=== PATIENT | male | born 1955 | race Caucasian/White ===

== ENCOUNTER 2022-02-12 06:24 | Inpatient (IN) | payer BC, OTHER ==
--- NOTE | 2022-02-12 06:51 | ED ---
Neuro HPI <Ronal Combs - Last Filed: 02/12/22 08:00> - General Source: EMS Mode of arrival: EMS Limitations: no limitations - History of Present Illness Is the patient presenting with stroke symptoms?: Yes Last Known Well Date: 02/11/22 Last Known Well Time: 20:00 -: hour(s) Location: right arm, right leg History of same: No Place: home Severity: moderate Quality: weak Improves With: none Worsens With: none On Anticoagulants: No Context: sudden onset Associated Symptoms: denies other symptoms Treatments Prior to Arrival: none <Shivam Pinon - Last Filed: 02/16/22 23:30> - General Stated Complaint: Rt Sided Weakness - History of Present Illness Initial Comments: This patient is 66-year-old man who presents to have evaluation for right-sided weakness. Patient had gone to bed around 830 PM last night. When he woke this morning around 3 AM he tried to get up to use the bathroom but was not able to stand due to weakness on his right side. He is not able get out of bed EMS called and transported patient for evaluation. Patient denies any headache. No injury or fall. Denies other complaints. (Shivam Pinon) - Related Data Home Medications: Home Medications Medication Instructions Recorded Confirmed Omeprazole Magnesium [PriLOSEC OTC] 20 mg PO DAILY PRN 02/12/22 02/12/22 Allergies/Adverse Reactions: Allergies Allergy/AdvReac Type Severity Reaction Status Date / Time No Known Drug Allergies Allergy Unknown Verified 02/12/22 08:31 Review of Systems ROS Other: All systems not noted in ROS Statement are negative. <Ronal Combs - Last Filed: 02/12/22 08:00> ROS Other: All systems not noted in ROS Statement are negative. Constitutional: Denies: fever, chills Eyes: Denies: eye pain, vision change Respiratory: Denies: cough, dyspnea Cardiovascular: Denies: chest pain, palpitations, edema Gastrointestinal: Denies: abdominal pain, nausea, vomiting Genitourinary: Denies: dysuria, hematuria Musculoskeletal: Denies: back pain Skin: Denies: rash Neurological: Reports: weakness. Denies: headache, numbness, paresthesias <Shivam Pinon - Last Filed: 02/16/22 23:30> ROS Statement: Those systems with pertinent positive or pertinent negative responses have been documented in the HPI. General Exam Limitations: no limitations General appearance: alert, in no apparent distress Head exam: Present: atraumatic, normocephalic Eye exam: Present: normal appearance, PERRL, EOMI. Absent: scleral icterus, conjunctival injection ENT exam: Present: normal oropharynx Neck exam: Present: normal inspection, full ROM Respiratory exam: Present: normal lung sounds bilaterally. Absent: respiratory distress, wheezes, rales, rhonchi, stridor Cardiovascular Exam: Present: regular rate, normal rhythm, normal heart sounds. Absent: systolic murmur, diastolic murmur, rubs, gallop GI/Abdominal exam: Present: soft. Absent: distended, tenderness, guarding, rebound, rigid, mass Extremities exam: Present: normal inspection, normal capillary refill. Absent: pedal edema, calf tenderness Back exam: Present: normal inspection. Absent: CVA tenderness (R), CVA tenderness (L) Neurological exam: Present: alert, oriented X3, CN II-XII intact, motor sensory deficit Skin exam: Present: warm, dry, intact, normal color. Absent: rash <Shivam Pinon - Last Filed: 02/16/22 23:30> Stroke MDM - Lab Data Result diagrams: 02/12/22 06:45 02/12/22 06:45 <Ronal Combs - Last Filed: 02/12/22 08:00> - Lab Data Result diagrams: 02/16/22 08:25 02/16/22 08:25 - NIH Stroke Scale 1a. Level of Consciousness: (0) alert 1b. LOC Questions: (0) answers correctly 1c. LOC Commands: (0) performs tasks correctly 2. Best Gaze: (0) normal 3. Visual: (0) no visual loss 4. Facial Palsy: (0) normal symmetrical movement 5a. Motor Arm Left: (0) no drift 5b. Motor Arm Right: (0) no drift 6a. Motor Leg Left: (0) no drift 6b. Motor Leg Right: (1) drift 7. Limb Ataxia: (1) present 1 limb 8. Sensory: (1) mild/moderate sensory loss 9. Best Language: (0) no aphasia 10. Dysarthria: (0) normal 11. Extinction/Inattention: (0) no abnormality - Thrombolytic Inclusion/Exclusion Thrombolytic Exclusion Criteria: Symptom Onset > 4.5 Hours <Shivam Pinon - Last Filed: 02/16/22 23:30> - Lab Data Lab Results 02/12/22 02/12/22 02/12/22 Range/Units 06:45 06:45 06:45 WBC 13.6 H (3.8-10.6) k/uL RBC 5.19 (4.30-5.90) m/uL Hgb 15.5 (13.0-17.5) gm/dL Hct 47.8 (39.0-53.0) % MCV 92.0 (80.0-100.0) fL MCH 29.8 (25.0-35.0) pg MCHC 32.4 (31.0-37.0) g/dL RDW 12.6 (11.5-15.5) % Plt Count 268 (150-450) k/uL MPV 7.0 Neutrophils % 89 % Lymphocytes % 4 % Monocytes % 6 % Eosinophils % 0 % Basophils % 0 % Neutrophils # 12.1 H (1.3-7.7) k/uL Lymphocytes # 0.6 L (1.0-4.8) k/uL Monocytes # 0.8 (0-1.0) k/uL Eosinophils # 0.0 (0-0.7) k/uL Basophils # 0.0 (0-0.2) k/uL PT 11.6 (9.0-12.0) sec INR 1.1 (<1.2) APTT 22.8 (22.0-30.0) sec Sodium 131 L (137-145) mmol/L Potassium 4.1 (3.5-5.1) mmol/L Chloride 95 L (98-107) mmol/L Carbon Dioxide 23 (22-30) mmol/L Anion Gap 13 mmol/L BUN 11 (9-20) mg/dL Creatinine 0.89 (0.66-1.25) mg/dL Est GFR (CKD-EPI)AfAm >90 (>60 ml/min/1.73 sqM) Est GFR (CKD-EPI)NonAf >90 (>60 ml/min/1.73 sqM) Glucose 210 H (74-99) mg/dL Estimated Ave Glu mg/dL Hemoglobin A1c (0.0-6.0) % Calcium 8.8 (8.4-10.2) mg/dL Total Bilirubin 0.8 (0.2-1.3) mg/dL AST 32 (17-59) U/L ALT 23 (4-49) U/L Alkaline Phosphatase 164 H (38-126) U/L Troponin I (0.000-0.034) ng/mL Total Protein 7.2 (6.3-8.2) g/dL Albumin 4.3 (3.5-5.0) g/dL TSH (0.465-4.680) mIU/L 02/12/22 02/12/22 02/12/22 Range/Units 06:45 06:45 06:45 WBC (3.8-10.6) k/uL RBC (4.30-5.90) m/uL Hgb (13.0-17.5) gm/dL Hct (39.0-53.0) % MCV (80.0-100.0) fL MCH (25.0-35.0) pg MCHC (31.0-37.0) g/dL RDW (11.5-15.5) % Plt Count (150-450) k/uL MPV Neutrophils % % Lymphocytes % % Monocytes % % Eosinophils % % Basophils % % Neutrophils # (1.3-7.7) k/uL Lymphocytes # (1.0-4.8) k/uL Monocytes # (0-1.0) k/uL Eosinophils # (0-0.7) k/uL Basophils # (0-0.2) k/uL PT (9.0-12.0) sec INR (<1.2) APTT (22.0-30.0) sec Sodium (137-145) mmol/L Potassium (3.5-5.1) mmol/L Chloride (98-107) mmol/L Carbon Dioxide (22-30) mmol/L Anion Gap mmol/L BUN (9-20) mg/dL Creatinine (0.66-1.25) mg/dL Est GFR (CKD-EPI)AfAm (>60 ml/min/1.73 sqM) Est GFR (CKD-EPI)NonAf (>60 ml/min/1.73 sqM) Glucose (74-99) mg/dL Estimated Ave Glu mg/dL 148 Hemoglobin A1c 6.8 H (0.0-6.0) % Calcium (8.4-10.2) mg/dL Total Bilirubin (0.2-1.3) mg/dL AST (17-59) U/L ALT (4-49) U/L Alkaline Phosphatase (38-126) U/L Troponin I <0.012 (0.000-0.034) ng/mL Total Protein (6.3-8.2) g/dL Albumin (3.5-5.0) g/dL TSH 4.540 (0.465-4.680) mIU/L - Medical Decision Making CT of the brain shows an old left occipital infarct. CTA of the head and neck show no acute abnormality. I sound physician's agreed to admit the patient I admitted the patient wrote admitting orders and consult the neurology. (Ronal Combs) Course <Shivam Pinon - Last Filed: 02/16/22 23:30> Vital Signs 02/12/22 02/12/22 02/12/22 06:45 07:00 07:15 Temperature 98.3 F Pulse Rate 102 H 100 101 H Respiratory 15 15 18 Rate Blood Pressure 182/100 166/99 149/93 Blood Pressure [Left Arm] O2 Sat by Pulse 96 98 95 Oximetry 02/12/22 02/12/22 02/12/22 07:30 10:00 13:00 Temperature Pulse Rate 105 H 91 75 Respiratory 18 18 18 Rate Blood Pressure 153/101 151/91 164/92 Blood Pressure [Left Arm] O2 Sat by Pulse 95 95 97 Oximetry 02/12/22 02/12/22 02/12/22 14:00 15:00 17:12 Temperature 98.7 F Pulse Rate 76 81 Respiratory 14 28 H 18 Rate Blood Pressure 147/90 164/92 Blood Pressure 164/81 [Left Arm] O2 Sat by Pulse Oximetry 02/12/22 19:26 Temperature Pulse Rate 82 Respiratory 18 Rate Blood Pressure 156/92 Blood Pressure [Left Arm] O2 Sat by Pulse 95 Oximetry - Reevaluation(s) Reevaluation #1: 02/12/22 07:[address] Bell from the stroke team (Shivam Pinon) Critical Care Time Critical Care Time: Yes (35 minutes) <Shivam Pinon - Last Filed: 02/16/22 23:30> Disposition Time of Disposition: 08:00 <Ronal Combs - Last Filed: 02/12/22 08:00> <Shivam Pinon - Last Filed: 02/16/22 23:30> Clinical Impression: Cerebrovascular accident (CVA) Disposition: ADMITTED IP TO THIS HOSP
--- NOTE | 2022-02-12 06:52 | CT ---
EXAMINATION TYPE: CT brain wo con for TPA DATE OF EXAM: 02/12/2022 COMPARISON: None HISTORY: code stroke CT DLP: 1326.9 mGycm Automated exposure control for dose reduction was used. CT brain without contrast. Ventricles have normal size. There is no mass effect or midline shift. No sign of intracranial hemorr sheridan. The calvarium is intact. Skull base is intact. There is some cortical hypodensity in the voice over announcer ior left occipital lobe measuring 2 cm. IMPRESSION: Left occipital lobe hypodensity consistent with an infarct that is probably old. No hemorrhage.
--- NOTE | 2022-02-12 06:57 | CT ---
EXAMINATION TYPE: CT angio head neck DATE OF EXAM: 02/12/2022 COMPARISON: None HISTORY: code stroke CT DLP: 875.9 mGycm Automated exposure control for dose reduction was used. CONTRAST: Performed with IV Contrast, patient injected with 65 mL of Isovue 370. Images obtained from the aortic arch to the vertex of the brain with the IV contrast. Three-D postprocessed images. There is normal branching pattern of the great vessels on the aortic arch. There is arterial flow in both subclavian arteries. There is arterial flow in the common internal and external carotid arteries bilaterally. There is fairly wide patency of the carotid artery bifurcations. There is arterial flow in both vertebral arteries. There is arterial flow in the vertebrobasilar artery system. No evidence of carotid or vertebral artery aneurysm or dissection. There is arterial flow in the anterior middle and posterior cerebral arteries bilaterally. No mass ef fect. No evidence of intracranial arterial stenosis. There is normal enhancement of the venous sinuse s. No sign of intracranial aneurysm or neovascularity. IMPRESSION: Negative CT angiogram of the brain. Negative CT angiogram of the neck
[2022-02-12 06:59] LABS: Basophils % (A) 0 %; Eosinophils % (A) 0 %; HCT 47.8 % (39.0-53.0); HGB 15.5 gm/dL (13.0-17.5); Lymphocytes # (A) 0.6 k/uL (1.0-4.8); Lymphocytes % (A) 4 %; MCH 29.8 pg (25.0-35.0); MCHC 32.4 g/dL (31.0-37.0); Monocytes # (A) 0.8 k/uL (0-1.0); Monocytes % (A) 6 %; Neutrophils # (A) 12.1 k/uL (1.3-7.7); Neutrophils % (A) 89 %; Platelet Count 268 k/uL (150-450); RBC 5.19 m/uL (4.30-5.90); RDW 12.6 % (11.5-15.5); WBC 13.6 k/uL (3.8-10.6)
[2022-02-12 07:11] LABS: ALT 23 U/L (4-49); AST 32 U/L (17-59); African American GFR (CKD) >90 (>60 ml/min/1.73 sqM); Albumin 4.3 g/dL (3.5-5.0); Alkaline Phosphatase 164 U/L (38-126); Anion Gap 13 mmol/L; Blood Urea Nitrogen 11 mg/dL (9-20); Calcium 8.8 mg/dL (8.4-10.2); Carbon Dioxide 23 mmol/L (22-30); Chloride 95 mmol/L (98-107); Glucose 210 mg/dL (74-99); INR 1.1 (<1.2); Non-African American GFR(CKD) >90 (>60 ml/min/1.73 sqM); Partial Thromboplastin Time 22.8 sec (22.0-30.0); Potassium 4.1 mmol/L (3.5-5.1); Prothrombin Time 11.6 sec (9.0-12.0); Sodium 131 mmol/L (137-145); Total Bilirubin 0.8 mg/dL (0.2-1.3); Total Protein 7.2 g/dL (6.3-8.2)
--- NOTE | 2022-02-12 07:30 | XR ---
EXAMINATION TYPE: XR chest 1V DATE OF EXAM: 02/12/2022 COMPARISON: 10/02/2011 HISTORY: 66-year-old male confusion, altered mental status TECHNIQUE: Single frontal view of the chest is obtained. FINDINGS: Heart is mildly enlarged. Hyperinflation. Interstitial density is increased from prior. No brina consolidation or pleural effusion. IMPRESSION: Mild cardiomegaly and COPD. Interstitial density increased from prior. Correlate to exclude bronchiti s, asthma, or mild pulmonary vascular congestion.
[2022-02-12] MEDS ORDERED: ASPIRIN 325 MG TAB PO STA (08:01)
[2022-02-12] MEDS ORDERED: TICAGRELOR 90 MG TAB PO STA (11:59)
--- NOTE | 2022-02-12 13:36 | P.CNNES ---
History of Present Illness Consult date: 02/12/22 Requesting physician: Ronal Combs Reason for Consult: CVA History of Present Illness: Patient is a 66-year-old right-handed male came to the hospital by ambulance early this morning today at 6:24 AM for evaluation of acute onset of right-sided weakness. Patient states that he went to sleep last night at 7 PM and was in usual state of health. He woke up at 3 AM, he felt he noticed weakness on the right side. He states he "couldn't maintain physical inability to stand, couldn't do anything with the right side". His right side felt weak. There was no numbness. He denies any trouble speaking or problem with the vision. He does notice trouble remembering things. No slurred speech, facial droop. As per EMS flow sheet, when they arrived, found patient laying on the floor just inside the front entrance. Patient was able to open the door for EMS. Patient mentioned that he woke up at 3 AM and his right side was weak. Patient had no facial droop, no speech deficits, strong equal head of sales on both hands and no arm drift. He mentioned that he went to bed at 8 PM last night with no issues noted. Patient denied any head, neck, chest back or abdominal pain. No nausea or vomiting. Patient's blood glucose was 328. Patient's blood pressure 153/82, pulse rate 100, respiration 14, saturation 97%. CT head showed left occipital lobe hypodensity consistent with infarct that is probably old. No hemorrhage. CTA of head and neck reported as "negative". Chest x-ray showed mild cardiomegaly, COPD, interstitial density increased from prior. Correlate to exclude bronchitis, asthma or mild pulmonary vascular congestion. Patient only takes omeprazole. He does not take any antiplatelet medication at home. Patient was given aspirin 325 mg in the ER. Patient denies any history of hypertension, diabetes, tobacco use or alcohol. He works at a post office, lives by himself. Denies any previous history of strokes or TIA. Review of Systems Constitutional: Denies chills, Denies fever Eyes: denies blurred vision, denies pain Ears, nose, mouth and throat: Denies headache, Denies sore throat Cardiovascular: Denies chest pain, Denies shortness of breath Respiratory: Denies cough Gastrointestinal: Denies abdominal pain, Denies diarrhea, Denies nausea, Denies vomiting Musculoskeletal: Denies myalgias Integumentary: Denies pruritus, Denies rash Neurological: Reports as per HPI Psychiatric: Denies anxiety, Denies depression Endocrine: Denies fatigue, Denies weight change Hematologic/Lymphatic: Denies easy bruising Allergic/Immunologic: Denies persistent infections Medications and Allergies Home Medications Medication Instructions Recorded Confirmed Type Omeprazole Magnesium [PriLOSEC OTC] 20 mg PO DAILY PRN 02/12/22 02/12/22 History Allergies Allergy/AdvReac Type Severity Reaction Status Date / Time No Known Drug Allergies Allergy Unknown Verified 02/12/22 08:31 Physical Examination - Vital Signs Vital Signs: Vital Signs Temp Pulse Resp BP Pulse Ox 02/12/22 10:00 91 18 151/91 95 02/12/22 07:30 105 H 18 153/101 95 02/12/22 07:15 101 H 18 149/93 95 02/12/22 07:00 100 15 166/99 98 02/12/22 06:45 98.3 F 102 H 15 182/100 96 Intake and Output 02/11/22 02/12/22 02/12/22 22:59 06:59 14:59 Other: Weight 123.377 kg Patient is a late middle aged male, appears younger than his stated age. Patient is alert awake oriented to time place and person. Speech appears mildly dysarthric although he declines any dysarthria. His language functions are normal. Patient can name and repeat very well. Attention, concentration and fund of knowledge is adequate. On cranial nerve examination, pupils are equal, round and reacting to light, visual rahman revealed right upper quadrant field defect, homonymous type. Extraocular muscles are intact with no nystagmus. Face is symmetric, tongue protrudes to the midline. Palatal elevation and sensation normal, hearing and shoulder shrug normal, facial sensation normal. On muscle strength testing, there is right pronator drift and the arm does not hit the bed. Muscle strength is normal in arms and legs distally and proximally, except right deltoid which is 5-. Deep tendon reflexes are symmetric biceps 1+, brachioradialis 1+, knee 1, ankles 0, plantar is up on the right, down left. Sensory to touch is equal. At times he would no neglect right arm on double simultaneous stimulation, although later he would feel it equally. Cerebellar function showed significant ataxia for [id number] testing on the right side. Patient has significant ataxia for [id number] testing on the right side. No ataxia on the left side. Tone and bulk of muscles normal. Gait deferred.. On general examination, there is no carotid bruit or murmur, S1-S2 audible. Chest is clear on consultation. Abdomen is soft nontender. No organomegaly, bowel sounds present. Peripheral pulses are present. No edema. Results - Laboratory Findings CBC and BMP: 02/12/22 06:45 02/12/22 06:45 Abnormal Lab Findings: Abnormal Labs 02/12/22 02/12/22 06:45 06:45 WBC 13.6 H Neutrophils # 12.1 H Lymphocytes # 0.6 L Sodium 131 L Chloride 95 L Glucose 210 H Alkaline Phosphatase 164 H Assessment and Plan Assessment: * Acute ischemic stroke with mild right-sided weakness, but significant ataxia of the right arm and leg. Examination also revealed right upper quadrant visual field defect. Patient's current NIH stroke scale is 4. Exact cause is uncertain. Rule out embolic source. * Elevated blood sugar, rule out diabetes. * Hypertension Plan: * Patient had significant right-sided ataxia. Patient will be placed on dual antiplatelet medication with Brilinta and aspirin for one month. Patient was loaded with Brilinta 180 mg, and will be maintained on 90 mg twice a day for 30 days. Patient also received a loading dose of aspirin 325 mg, and will be maintained on aspirin 81 mg daily. * MRI of the brain to evaluate for acute CVA * 2-D echo with bubble study rule out PFO * Fasting a.m. lipid panel * Hemoglobin A1c * PT OT, evaluate gait * Permissive hypertension for next 24-48 hours. * Telemetry monitoring * DVT prophylaxis: Patient started on heparin 5000 units subcu every 12 hours. * Neurology will follow. Thank you for the consult.
[2022-02-12] MEDS: HEPARIN SODIUM,PORCINE/PF 5,000 UNIT/0.5 ML SYRINGE SQ SCH ×2 (14:36→20:09)
--- NOTE | 2022-02-12 16:09 | MR ---
MR brain without contrast HISTORY: Acute cerebrovascular accident Multiplanar multisequence imaging through the brain Correlation to CT brain 02/12/2022 There is restricted diffusion present along the level of the thalamus, left occipital lobe and hippoc ampus. Corresponding hyperintensity is present on inversion recovery T2-weighted sequences. There is no evident hemorrhage or hydrocephalus. Orbits show symmetric appearance. The corpus callosum, pituit mary, cervical medullary junction, cerebellopontine angles are within normal limits. There are expecte d vascular flow voids. Orbits show symmetric appearance. Paranasal sinuses are well aerated, mastoid air cells are normal. Mild mucosal disease present in the ethmoid air cells. Confluent and scattered hyperintensity present in the periventricular, pericallosal and subcortical white matter. Cortical at rophy is noted. IMPRESSION: Subacute infarct as described. Age-related changes of atrophy and chronic small vessel is chemia.
[2022-02-12] MEDS ORDERED: DEXTROSE 50% SYRINGE 50 ML IVP PRN ×2 (17:04)
--- NOTE | 2022-02-12 17:15 | P.HPIM ---
History of Present Illness H&P Date: 02/19/22 This is a pleasant 66-year-old male who presented to [facility] with a past medical history of hypertension hyperlipidemia with right hemiparesis. Patient states that he woke up around 2 AM this morning and he felt like something wasn't right he wasn't able to move his right side normally. Patient denied chest pain shortness of breath nausea vomiting fevers or chills. Patient further denied headache dizziness or loss of consciousness. Patient came to the ER for further assessment. Initial CT of the brain without contrast revealed a left occipital lobe hypodensity consistent with an infarct was probably old but no hemorrhage. MRI of the brain revealed a subacute infarct. She continues to have right-sided hemiparesis with some mild expressive aphasia patient had difficulty finding words. Review of Systems A 14 point review systems was assessed patient was only positive for those discussed in HPI. Past Medical History Past Medical History: Hyperlipidemia, Hypertension Medications and Allergies Home Medications Medication Instructions Recorded Confirmed Type Omeprazole Magnesium [PriLOSEC OTC] 20 mg PO DAILY PRN 02/12/22 02/12/22 History Allergies Allergy/AdvReac Type Severity Reaction Status Date / Time No Known Drug Allergies Allergy Unknown Verified 02/12/22 08:31 Physical Exam Osteopathic Statement: *. No significant issues noted on an osteopathic struct ural exam other than those noted in the History and Physical/Consult. Vitals: Vital Signs Temp Pulse Resp BP Pulse Ox 02/12/22 15:00 81 28 H 164/92 02/12/22 14:00 76 14 147/90 02/12/22 13:00 75 18 164/92 97 02/12/22 10:00 91 18 151/91 95 02/12/22 07:30 105 H 18 153/101 95 02/12/22 07:15 101 H 18 149/93 95 02/12/22 07:00 100 15 166/99 98 02/12/22 06:45 98.3 F 102 H 15 182/100 96 Intake and Output 02/12/22 02/12/22 02/12/22 06:59 14:59 22:59 Other: Weight 123.377 kg General: [non toxic], [no distress], [appears at stated age] Derm: [warm], [dry] Head: [atraumatic], [normocephalic], [symmetric] Eyes: [EOMI], [no lid lag], [anicteric sclera] Mouth: [no lip lesion], [mucus membranes moist] Cardiovascular: [S1S2 reg], [no murmur], [positive posterior tibial pulse bilateral], Lungs: [CTA bilateral], [no rhonchi, no rales] , [no accessory muscle use] Abdominal: [soft], [ nontender to palpation], [no guarding], [no appreciable or ganomegaly] Ext: [no gross muscle atrophy], [no edema], [no contractures] Neuro: [ CN II-XI grossly intact], [no focal neuro deficits] Psych: [Alert], [oriented], [appropriate affect] Results CBC & Chem 7: 02/12/22 06:45 02/12/22 06:45 Labs: Abnormal Lab Results - Last 24 Hours (Table) 02/12/22 02/12/22 Range/Units 06:45 06:45 WBC 13.6 H (3.8-10.6) k/uL Neutrophils # 12.1 H (1.3-7.7) k/uL Lymphocytes # 0.6 L (1.0-4.8) k/uL Sodium 131 L (137-145) mmol/L Chloride 95 L (98-107) mmol/L Glucose 210 H (74-99) mg/dL Alkaline Phosphatase 164 H (38-126) U/L Thrombosis Risk Factor Assmnt - DVT/VTE Prophylaxis DVT/VTE Prophylaxis: Mechanical Prophylaxis ordered Assessment and Plan Assessment: 1. Right hemiparesis secondary to subacute CVA Neuro check Seizure precautions Aspirin and statin initiated PT OT Neurology recommendations appreciated Check hemoglobin A1c Check lipid panel Check TSH and free T4 2. History of hypertension Resume low-dose beta omi Monitor vitals 3. History of hyperlipidemia Resume statin 4. Hyperglycemia concern for diabetes mellitus undiagnosed Hemoglobin A1c ordered Insulin sliding scale initiated 5. GI DVT prophylaxis 6. A.m. labs Patient is full code Disposition patient may require rehabilitation awaiting PT OT assessment Is a patent length of stay is greater than 2 midnight stay Greater than 38 minutes spent coordinating care documenting and reviewing chart Time with Patient: Greater than 30
[2022-02-12 18:11] LABS: Glucose,Whole Blood 104 mg/dL (70-110)
[2022-02-12] MEDS: INSULIN ASPART (NovoLOG) 100 UNIT/ML VIAL SQ SCH (18:11)
[2022-02-12] MEDS: METOPROLOL SUCCINATE (ER) 25 MG TAB.ER.24H PO SCH (18:14)
[2022-02-12] MEDS: PANTOPRAZOLE 40 MG TABLET PO SCH (18:14)
[2022-02-12] MEDS: ATORVASTATIN 40 MG TAB PO SCH (20:10)
[2022-02-13 06:33] LABS: Glucose,Whole Blood 130 mg/dL (70-110)
[2022-02-13] MEDS: INSULIN ASPART (NovoLOG) 100 UNIT/ML VIAL SQ SCH ×3 (06:42→16:45)
[2022-02-13] MEDS: PANTOPRAZOLE 40 MG TABLET PO SCH (06:46)
[2022-02-13] MEDS: ASPIRIN 325 MG TAB PO SCH (07:58)
[2022-02-13] MEDS: HEPARIN SODIUM,PORCINE/PF 5,000 UNIT/0.5 ML SYRINGE SQ SCH ×2 (07:59→19:57)
[2022-02-13] MEDS: LINAGLIPTIN 5 MG TABLET PO SCH (07:59)
[2022-02-13] MEDS: METOPROLOL SUCCINATE (ER) 25 MG TAB.ER.24H PO SCH (07:59)
[2022-02-13 09:27] LABS: Basophils % (A) 0 %; Eosinophils # (A) 0.1 k/uL (0-0.7); Eosinophils % (A) 1 %; HCT 51.4 % (39.0-53.0); HGB 16.1 gm/dL (13.0-17.5); Lymphocytes # (A) 1.2 k/uL (1.0-4.8); Lymphocytes % (A) 13 %; MCH 29.5 pg (25.0-35.0); MCHC 31.3 g/dL (31.0-37.0); MCV 94.2 fL (80.0-100.0); Mean Platelet Volume 7.1; Monocytes # (A) 0.7 k/uL (0-1.0); Monocytes % (A) 8 %; Neutrophils # (A) 6.9 k/uL (1.3-7.7); Neutrophils % (A) 75 %; Platelet Count 265 k/uL (150-450); RBC 5.46 m/uL (4.30-5.90); RDW 12.7 % (11.5-15.5); WBC 9.1 k/uL (3.8-10.6)
[2022-02-13 09:43] LABS: ALT 25 U/L (4-49); AST 45 U/L (17-59); African American GFR (CKD) >90 (>60 ml/min/1.73 sqM); Albumin 4.3 g/dL (3.5-5.0); Alkaline Phosphatase 136 U/L (38-126); Anion Gap 15 mmol/L; Blood Urea Nitrogen 11 mg/dL (9-20); Calcium 9.4 mg/dL (8.4-10.2); Carbon Dioxide 20 mmol/L (22-30); Chloride 101 mmol/L (98-107); Glucose 130 mg/dL (74-99); Non-African American GFR(CKD) 89 (>60 ml/min/1.73 sqM); Sodium 136 mmol/L (137-145); Total Bilirubin 1.3 mg/dL (0.2-1.3); Total Protein 7.4 g/dL (6.3-8.2)
[2022-02-13 11:32] LABS: Glucose,Whole Blood 132 mg/dL (70-110)
--- NOTE | 2022-02-13 13:03 | CA ---
Transthoracic Echo Report Name: Guerrero Retana Age: 66 Gender: M : 1955 Exam Date: 02/13/2022 08:19 Exam Location: [facility] Ht (in): 72 Wt (lb): 272 Ordering Physician: Naomi Almonte MD Attending/Referring Phys: Thermocouple Tester Raven Franco RDCS Procedure CPT: Indications: acute CVA Cardiac Hx: Technical Quality: Fair Contrast 1: Total Dose (mL): Contrast 2: Total Dose (mL): MEASUREMENTS (Male / Female) Normal Values M-MODE Aortic Root Diameter MM 3.0 cm LA Systolic Diameter MM 4.6 cm LA Ao Ratio MM 1.5 MV E Point Septal Separation 1.3 cm AV Cusp Separation MM 2.5 cm DOPPLER MV Area PHT 2.9 cm??? Mitral E Point Velocity 61.9 cm/s Mitral A Point Velocity 82.2 cm/s Mitral E to A Ratio 0.8 MV Deceleration Time 258.1 ms MV E' Velocity 6.4 cm/s Mitral E to MV E' Ratio 9.7 FINDINGS Left Ventricle Left ventricular ejection fraction is estimated at 50-55%. Right Ventricle Normal right ventricular size and function. Right Atrium Normal right atrial size. Left Atrium Normal left atrial size. BUBBLE STUDY NOT DONE DUE TO TDS IMAGES. Mitral Valve Structurally normal mitral valve. Aortic Valve Trileaflet aortic valve. Tricuspid Valve Structurally normal tricuspid valve. Pulmonic Valve Structurally normal pulmonic valve. Pericardium Normal pericardium. Aorta Normal size aortic root and proximal ascending aorta. CONCLUSIONS Normal LV function Bubble study could not be performed Consider transesophageal echo Previewed by: Dr. Tim Duarte MD (Electronically Signed) Final Date: 13 February 2022 13:02
--- NOTE | 2022-02-13 14:16 | P.CONS ---
History of Present Illness - Chief Complaint Gait disturbance, right hemiparesthesias - History of Present Illness I had the opportunity to see patient for inpatient rehab consultation with regard to gait disturbance. Patient admitted to [facility] February 10 to acute onset right-sided weakness to Dr. Hernandez. Seen by neurology, Dr. Almonte for the stroke. Diagnostic tests head CT initially demonstrated left occipital infarct most likely old. Angiogram CT negative for head and neck. Chest x-ray with cardiomegaly and COPD changes. A follow-up brain MRI demonstrated subacute left thalamic, supple and hippocampal infarcts as well as age-related change. History of PT reports minimal assistance for bed mobility, moderate assistance for transfer and minimal moderate assistance for gait 25 feet with roller walker. OT and speech therapy prescribed. I Previous function as elicited from patient and corroborated by multiple family members: 66-year-old right-handed white male who is a lives in 3 floor home alone. Works full-time for [employer]. Independent with cooking, laundry, driving, standing shower gait without device. Has no regular PCP but does see Dr. Chelsi Duarte for reflux. Denies tobacco or alcohol. Review of Systems Review of systems: ENT: Denies sneezes or discharge. Eyes: Denies discharge or photophobia. Cardiac: Denies chest pain or palpitation. Pulmonary: Denies cough or shortness of breath. Gastrointestinal: Denies nausea, emesis, constipation, diarrhea. Genitourinary: Denies discharge or frequency. Musculoskeletal: Denies muscle or bone aches. Neurologic: Right-sided weakness and numbness. Endocrine: Denies shakes or sweats. Oncology: Denies cancers. Dermatologic: Denies rash, itching, pruritus. ALLERGY/immunology: Denies sneezes, rashes. Past Medical History Past Medical History: Diabetes Mellitus, Hyperlipidemia, Hypertension History of Any Multi-Drug Resistant Organisms: None Reported Past Surgical History: No Surgical Hx Reported Past Anesthesia/Blood Transfusion Reactions: No Reported Reaction Past Psychological History: No Psychological Hx Reported Smoking Status: Never smoker Past Alcohol Use History: None Reported Past Drug Use History: None Reported Medications and Allergies Home Medications Medication Instructions Recorded Confirmed Type Omeprazole Magnesium [PriLOSEC OTC] 20 mg PO DAILY PRN 02/12/22 02/12/22 History Allergies Allergy/AdvReac Type Severity Reaction Status Date / Time No Known Drug Allergies Allergy Unknown Verified 02/12/22 08:31 Physical Exam Vitals: Vital Signs Temp Pulse Pulse Resp BP BP BP 02/13/22 11:00 97.5 F L 87 16 151/84 02/13/22 07:47 98 F 68 16 156/84 02/13/22 04:00 75 16 169/80 02/13/22 00:00 72 16 160/92 02/12/22 19:45 97.9 F 74 16 153/97 02/12/22 19:26 82 18 156/92 02/12/22 17:12 98.7 F 18 164/81 02/12/22 15:00 81 28 H 164/92 Pulse Ox 02/13/22 11:00 97 02/13/22 07:47 98 02/13/22 04:00 96 02/13/22 00:00 95 02/12/22 19:45 97 02/12/22 19:26 95 02/12/22 17:12 02/12/22 15:00 Intake and Output 02/12/22 02/13/22 02/13/22 22:59 06:59 14:59 Intake Total 485 Output Total 300 250 Balance 485 -300 -250 Intake: Oral 485 Output: Urine 300 250 Other: Voiding Method Urinal Urinal Urinal # Voids 1 Weight 123.377 kg Skin: Good color, texture, turgor. General: Medium build and comfortable appearance. Head: Normocephalic, atraumatic. Eyes: Symmetric. Pupils equal round. Ears: Symmetric. Hearing within normal limits. Mouth: Clear. Neck: Supple. Carotid without bruit. Cardiac: Regular rate and rhythm. Lungs: Clear anteriorly and posteriorly. Abdomen: Soft active nontender. Extremities: Normal tone. Neurological: Mental status: Alert, cooperative, pleasant. Cranial nerves: Symmetric facial tone and trapezius. Motor: Normal strength and isolation left side. Right arm in flexion synergy particularly at wrist and fingers. Right leg with extension synergy with elements of isolation. Sensation: Intact left more so than right side. DTRs: Symmetric and equal throughout. Mobility: Did not attempt to sit or stand, multiple family members present. Results CBC & Chem 7: 02/13/22 08:47 02/13/22 08:47 Labs: Abnormal Lab Results - Last 24 Hours (Table) 02/12/22 02/13/22 02/13/22 Range/Units 06:45 06:30 08:47 Sodium 136 L (137-145) mmol/L Carbon Dioxide 20 L (22-30) mmol/L Glucose 130 H (74-99) mg/dL POC Glucose (mg/dL) 130 H (70-110) mg/dL Hemoglobin A1c 6.8 H (0.0-6.0) % Alkaline Phosphatase 136 H (38-126) U/L 02/13/22 Range/Units 11:31 Sodium (137-145) mmol/L Carbon Dioxide (22-30) mmol/L Glucose (74-99) mg/dL POC Glucose (mg/dL) 132 H (70-110) mg/dL Hemoglobin A1c (0.0-6.0) % Alkaline Phosphatase (38-126) U/L Assessment and Plan (1) Cerebrovascular accident (CVA) Current Visit: Yes Status: Acute Code(s): I63.9 - CEREBRAL INFARCTION, UNSPECIFIED SNOMED Code(s): 707460859 Plan: Comments and plan: Patient has gait disturbance with related stroke with resultant right hemiparesthesias. At this time safety concerns are noted. The patient just admitted yesterday in's possible that this is TIA and not a full stroke. This could be consistent with head CT and MRI findings currently. In any event we'll follow therapies over weekend, review case Wednesday a.m. determine if patient still a safety concerns and need for inpatient rehab.
[2022-02-13 16:42] LABS: Glucose,Whole Blood 113 mg/dL (70-110)
--- NOTE | 2022-02-13 16:52 | P.PN ---
Subjective Progress Note Date: 02/13/22 Patient seen and examined at bedside patient is currently resting in bed comfortably. Patient denies chest pain or shortness of breath. Patient will likely go to inpatient rehab. Objective - Vital Signs Vital signs: Vital Signs Temp 97.5 F L 02/13/22 11:00 Pulse 91 02/13/22 15:12 Resp 16 02/13/22 11:00 BP 158/88 02/13/22 15:12 Pulse Ox 97 02/13/22 15:12 FiO2 Intake & Output 02/12/22 02/13/22 02/13/22 18:59 06:59 18:59 Intake Total 485 Output Total 300 250 Balance 185 -250 Weight 123.377 kg Intake: Oral 485 Output: Urine 300 250 Other: Voiding Method Urinal Urinal # Voids 1 - Exam General: [non toxic], [no distress], [appears at stated age] Derm: [warm], [dry] Head: [atraumatic], [normocephalic], [symmetric] Eyes: [EOMI], [no lid lag], [anicteric sclera] Mouth: [no lip lesion], [mucus membranes moist] Cardiovascular: [S1S2 reg], [no murmur], [positive posterior tibial pulse bilateral], Lungs: [CTA bilateral], [no rhonchi, no rales] , [no accessory muscle use] Abdominal: [soft], [ nontender to palpation], [no guarding], [no appreciable organomegaly] Ext: [no gross muscle atrophy], [no edema], [no contractures] decreased strength in right upper or lower extremities Neuro: , right hemiparesis Psych: [Alert], [oriented], [appropriate affect] - Labs CBC & Chem 7: 02/13/22 08:47 02/13/22 08:47 Labs: Abnormal Lab Results - Last 24 Hours (Table) 02/12/22 02/13/22 02/13/22 Range/Units 06:45 06:30 08:47 Sodium 136 L (137-145) mmol/L Carbon Dioxide 20 L (22-30) mmol/L Glucose 130 H (74-99) mg/dL POC Glucose (mg/dL) 130 H (70-110) mg/dL Hemoglobin A1c 6.8 H (0.0-6.0) % Alkaline Phosphatase 136 H (38-126) U/L 02/13/22 02/13/22 Range/Units 11:31 16:38 Sodium (137-145) mmol/L Carbon Dioxide (22-30) mmol/L Glucose (74-99) mg/dL POC Glucose (mg/dL) 132 H 113 H (70-110) mg/dL Hemoglobin A1c (0.0-6.0) % Alkaline Phosphatase (38-126) U/L Assessment and Plan Assessment: 1. Right hemiparesis secondary to subacute CVA Neuro check Seizure precautions Aspirin and statin initiated PT OT Neurology recommendations appreciated Check hemoglobin A1c Check lipid panel Check TSH and free T4 2. New-onset type 2 diabetes mellitus Tragenta started consult dietary 3.History of hypertension Resume low-dose beta moi Monitor vitals 4. History of hyperlipidemia Resume statin 5. Hyperglycemia concern for diabetes mellitus undiagnosed Hemoglobin A1c ordered Insulin sliding scale initiated 6. GI DVT prophylaxis 7. A.m. labs Patient is full code Disposition inpatient rehab Is a patent length of stay is greater than 2 midnight stay Greater than 38 minutes spent coordinating care documenting and reviewing chart
[2022-02-13 17:02] LABS: Chol/HDL Ratio 3.12 Ratio; LDL Cholesterol,Calculated 123.2 mg/dL (0.0-131.0); VLDL Calculation 13.44 mg/dL (5.00-40.00)
[2022-02-13] MEDS: ATORVASTATIN 40 MG TAB PO SCH (19:57)
[2022-02-13 20:24] LABS: Glucose,Whole Blood 122 mg/dL (70-110)
[2022-02-14] MEDS: PANTOPRAZOLE 40 MG TABLET PO SCH (05:36)
[2022-02-14 06:15] LABS: Glucose,Whole Blood 108 mg/dL (70-110)
[2022-02-14] MEDS: INSULIN ASPART (NovoLOG) 100 UNIT/ML VIAL SQ SCH ×3 (06:17→16:51)
[2022-02-14] MEDS: HEPARIN SODIUM,PORCINE/PF 5,000 UNIT/0.5 ML SYRINGE SQ SCH ×2 (08:16→20:18)
[2022-02-14] MEDS: ASPIRIN 325 MG TAB PO SCH (08:16)
[2022-02-14] MEDS: METOPROLOL SUCCINATE (ER) 25 MG TAB.ER.24H PO SCH (08:16)
[2022-02-14] MEDS: LINAGLIPTIN 5 MG TABLET PO SCH (08:16)
--- NOTE | 2022-02-14 09:42 | P.PN ---
Subjective Progress Note Date: 02/13/22 Patient was seen for a follow-up. Patient states that he is still weak on the right side. Denies any headache. No new worsening. Telemetry monitoring showing sinus rhythm in the 80s. No other arrhythmia. Objective - Vital Signs Vital signs: Vital Signs Temp 98.0 F 02/13/22 19:54 Pulse 71 02/13/22 19:54 Resp 19 02/13/22 19:54 BP 151/91 02/13/22 19:54 Pulse Ox 96 02/13/22 19:54 FiO2 Intake & Output 02/13/22 02/13/22 02/14/22 06:59 18:59 06:59 Intake Total 485 Output Total 300 250 150 Balance 185 -250 -150 Weight 123.377 kg Intake: Oral 485 Output: Urine 300 250 150 Other: Voiding Method Urinal Urinal # Voids 1 1 - Exam Patient is a late middle aged male, appears younger than his stated age. Patient is alert awake oriented to time place and person. Speech is clear with no aphasia or dysarthria. . Patient can name and repeat very well. Attention, concentration and fund of knowledge is adequate. On cranial nerve examination, pupils are equal, round and reacting to light, visual rahman revealed right upper quadrant field defect, homonymous type. Extraocular muscles are intact with no nystagmus. Face is symmetric, tongue protrudes to the midline. Palatal elevation and sensation normal, hearing and shoulder shrug normal, facial sensation normal. On muscle strength testing, there is right pronator drift and the arm does not hit the bed. Muscle strength is normal in the left arm and leg distally and proximally. On the right side deltoid 4+, biceps 5, triceps 5, primary operator 5-. Deep tendon reflexes are symmetric biceps 1+, brachioradialis 1+, knee 1, ankles 0, plantar is up on the right, down left. Sensory to touch is equal. No neglect. Cerebellar function showed significant ataxia for [id number] testing on the right side. Patient has significant ataxia for [id number] testing on the right side. No ataxia on the left side. Tone and bulk of muscles normal. Gait deferred.. On general examination, there is no carotid bruit or murmur, S1-S2 audible. Chest is clear on consultation. Abdomen is soft nontender. No organomegaly, bowel sounds present. Peripheral pulses are present. No edema. - Labs CBC & Chem 7: 02/13/22 08:47 02/13/22 08:47 Labs: Abnormal Lab Results - Last 24 Hours (Table) 02/13/22 02/13/22 02/13/22 Range/Units 06:30 08:47 11:31 Sodium 136 L (137-145) mmol/L Carbon Dioxide 20 L (22-30) mmol/L Glucose 130 H (74-99) mg/dL POC Glucose (mg/dL) 130 H 132 H (70-110) mg/dL Alkaline Phosphatase 136 H (38-126) U/L Cholesterol 201.00 H (0.00-200.00) mg/dL HDL Cholesterol 64.40 H (40.00-60.00) mg/dL 02/13/22 Range/Units 16:38 Sodium (137-145) mmol/L Carbon Dioxide (22-30) mmol/L Glucose (74-99) mg/dL POC Glucose (mg/dL) 113 H (70-110) mg/dL Alkaline Phosphatase (38-126) U/L Cholesterol (0.00-200.00) mg/dL HDL Cholesterol (40.00-60.00) mg/dL Assessment and Plan Assessment: * Acute ischemic stroke with mild right-sided weakness, but significant ataxia of the right arm and leg. Examination also revealed right upper quadrant visual field defect. Patient's current NIH stroke scale is 4. Exact cause is uncertain. Rule out embolic source. * Diabetes, newly diagnosed, A1c 6.8 * Hypertension * Hyperlipidemia Plan: * MRI of brain revealed subacute infarct involving the left thalamus, left o ccipital lobe and hippocampus. I personally reviewed MRI of the brain and agree with the findings. This CVA appears embolic in nature. * Patient to be maintained on Brilinta 90 mg twice a day and aspirin 81 mg daily at least for one month. Thereafter may maintain on single agent aspirin 81 mg daily. This plan may change based upon workup as below. * 2-D echo revealed normal left ventricular function with EF 50-55%. Left atrial size is normal. Bubble study could not be performed. Consider MARIANA. * We will consult cardiology for MARIANA. * Fasting a.m. lipid panel with cholesterol 201, LDL 123, HDL 64 and triglycerides 67.2. Agree with Lipitor 40 mg. * Hemoglobin A1c 6.8. Patient started on Tradjenta. * PT OT, evaluate gait * Permissive hypertension for next 24-48 hours. * Telemetry monitoring showing sinus rhythm. * DVT prophylaxis: Patient started on heparin 5000 units subcu every 12 hours.
[2022-02-14] MEDS: TICAGRELOR 90 MG TAB PO SCH ×2 (10:33→20:18)
[2022-02-14 11:34] LABS: Glucose,Whole Blood 111 mg/dL (70-110)
--- NOTE | 2022-02-14 12:09 | P.CRDCN ---
History of Present Illness Consult date: 02/14/22 History of present illness: History of Present Illness: The patient is a 66-year-old male who has not seen a physician in the past who presented with right-sided weakness and evidence of CVA. Cardiology consultation was requested to undergo MARIANA. Prior to the event the patient has no complaints. He has been active physically without difficulties. He denies any exertional chest discomfort or dyspnea. He has no palpitations, no PND orthopnea or peripheral edema. He has been in sinus mechanism since his admission. He had right-sided weakness, slightly better but continues to feel fatigued. He had an echocardiogram that showed a normal left ventricle size and systolic function but could not comment on the bubble study. The patient has no history of documented hypertension, it has been elevated here. He is a nonsmoker. Medications: He was taking Nexium as an outpatient and has been started on aspirin, Brilinta, Toprol Lipitor after admission Review of Systems: Respiratory: No history of asthma, bronchitis or recent cough. GI: No nausea or vomiting . No history of peptic ulcer disease. No recent GI bleed. : No hematuria or dysuria. Nervous System: No stroke or seizure. Physical Examination: Blood pressure 66-year-old male, alert oriented no apparent distress, blood pressure 145/80, heart rate in the 60, Head: Normocephalic. Eyes: Sclerae nonicteric. Neck: Good carotid upstroke, no bruit, no jugular venous distention. Lungs: Clear to auscultation. Heart: Regular rate and rhythm, S1-S2, no S3, no rub. No murmur. Abdomen: Soft nontender, positive bowel sounds no organomegaly. Extremities: No edema, intact distal pulses. Ecchymosis noted on the right lower extremity and right-sided weakness Labs: Potassium 4, hemoglobin 16.1, BUN 11, creatinine 0.91, troponin less than 0.012, LDL 123. EKG: Sinus mechanism on the monitor Impression: 1. Right-sided weakness with evidence of CVA 2. Hypertension not documented in the past 3. Hyperlipidemia, not treated in the past Plan: 1. Follow blood pressure and adjust antihypertensive treatment 2. Continue statin 3. MARIANA on Wednesday, the risks and the complications were discussed with the patient who is in full understanding and agreement 4. Thank you for this consult we will follow with you Past Medical History Past Medical History: Diabetes Mellitus, Hyperlipidemia, Hypertension History of Any Multi-Drug Resistant Organisms: None Reported Past Surgical History: No Surgical Hx Reported Past Anesthesia/Blood Transfusion Reactions: No Reported Reaction Past Psychological History: No Psychological Hx Reported Smoking Status: Never smoker Past Alcohol Use History: None Reported Past Drug Use History: None Reported Medications and Allergies Home Medications Medication Instructions Recorded Confirmed Type Omeprazole Magnesium [PriLOSEC OTC] 20 mg PO DAILY PRN 02/12/22 02/12/22 History Allergies Allergy/AdvReac Type Severity Reaction Status Date / Time No Known Drug Allergies Allergy Unknown Verified 02/12/22 08:31 Physical Exam Vitals: Vital Signs Temp Pulse Resp BP BP Pulse Ox 02/14/22 11:45 66 16 145/80 96 02/14/22 08:12 97.8 F 74 16 166/91 97 02/14/22 04:00 98.0 F 70 19 161/91 97 02/14/22 00:19 73 19 145/82 97 02/13/22 19:54 98.0 F 71 19 151/91 96 02/13/22 15:12 91 158/88 97 Intake and Output 02/13/22 02/14/22 02/14/22 22:59 06:59 14:59 Intake Total 0 Output Total 150 400 490 Balance -150 -400 -490 Intake: Oral 0 Output: Urine 150 400 490 Other: Voiding Method Urinal Urinal Urinal # Voids 1 Results 02/13/22 08:47 02/13/22 08:47 Lipids 02/13/22 Range/Units 08:47 Triglycerides 67.20 (0.00-149.00) mg/dL Cholesterol 201.00 H (0.00-200.00) mg/dL HDL Cholesterol 64.40 H (40.00-60.00) mg/dL Cholesterol/HDL Ratio 3.12 Ratio Current Medications Generic Name Dose Route Start Last Admin Trade Name Freq PRN Reason Stop Dose Admin Aspirin 81 mg 02/15/22 09:00 Aspirin 81 Mg PO DAILY JANAE Atorvastatin Calcium 40 mg 02/12/22 21:00 02/13/22 19:57 Atorvastatin 40 Mg Tab PO 40 mg HS JANAE Administration Dextrose/Water 25 ml 02/12/22 17:04 Dextrose 50% Syringe 50 Ml IVP PER PROTOCOL PRN Hypoglycemia Protocol Dextrose/Water 50 ml 02/12/22 17:04 Dextrose 50% Syringe 50 Ml IVP PER PROTOCOL PRN Hypoglycemia Protocol Heparin Sodium (Porcine) 5,000 unit 02/12/22 13:45 02/14/22 08:16 Heparin Sodium,Porcine/Pf 5,000 Unit/0.5 Ml Syringe SQ 5,000 unit Q12HR JANAE Administration Insulin Aspart 0 unit 02/12/22 17:30 02/14/22 06:17 Insulin Aspart (Novolog) 100 Unit/Ml Vial SQ Not Given AC-TID JANAE Protocol Linagliptin 5 mg 02/13/22 09:00 02/14/22 08:16 Linagliptin 5 Mg Tablet PO 5 mg DAILY JANAE Administration Metoprolol Succinate 25 mg 02/12/22 17:15 02/14/22 08:16 Metoprolol Succinate (Er) 25 Mg Tab.Er.24h PO 25 mg DAILY JANAE Administration Pantoprazole Sodium 40 mg 02/12/22 17:00 02/14/22 05:36 Pantoprazole 40 Mg Tablet PO 40 mg AC-BRKFST JANAE Administration Ticagrelor 90 mg 02/14/22 09:45 02/14/22 10:33 Ticagrelor 90 Mg Tab PO 90 mg BID JANAE Administration Intake and Output 02/13/22 02/14/22 02/14/22 22:59 06:59 14:59 Intake Total 0 Output Total 150 400 490 Balance -150 -400 -490 Intake: Oral 0 Output: Urine 150 400 490 Other: Voiding Method Urinal Urinal Urinal # Voids 1 02/13/22 08:47 02/13/22 08:47
--- NOTE | 2022-02-14 12:29 | P.PN ---
Subjective Progress Note Date: 02/14/22 The patient was seen this morning, he continues to complain of right-sided weakness and difficulties moving around. No acute events overnight Objective - Vital Signs Vital signs: Vital Signs Temp 97.8 F 02/14/22 08:12 Pulse 66 02/14/22 11:45 Resp 16 02/14/22 11:45 BP 145/80 02/14/22 11:45 Pulse Ox 96 02/14/22 11:45 FiO2 Intake & Output 02/13/22 02/14/22 02/14/22 18:59 06:59 18:59 Intake Total 0 Output Total 250 550 490 Balance -250 550 -714 Intake: Oral 0 Output: Urine 250 550 490 Other: Voiding Method Urinal Urinal Urinal # Voids 1 1 - Exam General: [non toxic], [no distress], [appears at stated age] Derm: [warm], [dry] Head: [atraumatic], [normocephalic], [symmetric] Eyes: [EOMI], [no lid lag], [anicteric sclera] Mouth: [no lip lesion], [mucus membranes moist] Cardiovascular: [S1S2 reg], [no murmur], [positive posterior tibial pulse bilateral], Lungs: [CTA bilateral], [no rhonchi, no rales] , [no accessory muscle use] Abdominal: [soft], [ nontender to palpation], [no guarding], [no appreciable organomegaly] Ext: [no gross muscle atrophy], [no edema], [no contractures] decreased strength in right upper or lower extremities Neuro: , right hemiparesis Psych: [Alert], [oriented], [appropriate affect] - Labs CBC & Chem 7: 02/13/22 08:47 02/13/22 08:47 Labs: Abnormal Lab Results - Last 24 Hours (Table) 02/13/22 02/13/22 02/13/22 Range/Units 08:47 16:38 20:23 POC Glucose (mg/dL) 113 H 122 H (70-110) mg/dL Cholesterol 201.00 H (0.00-200.00) mg/dL HDL Cholesterol 64.40 H (40.00-60.00) mg/dL 02/14/22 Range/Units 11:32 POC Glucose (mg/dL) 111 H (70-110) mg/dL Cholesterol (0.00-200.00) mg/dL HDL Cholesterol (40.00-60.00) mg/dL Assessment and Plan Assessment: 1. Right hemiparesis secondary to subacute CVA Neuro check Seizure precautions Aspirin and statin initiated PT OT Neurology recommendations appreciated Patient was seen by cardiology plans for MARIANA on Wednesday 2. New-onset type 2 diabetes mellitus hemoglobin A1c 6.8 Tragenta started consult dietary Insulin sliding scale initiated 3.History of hypertension Resume low-dose beta moi Monitor vitals 4. History of hyperlipidemia Resume statin 6. GI DVT prophylaxis 7. A.m. labs Patient is full code Disposition inpatient rehab Is a patent length of stay is greater than 2 midnight stay Greater than 38 minutes spent coordinating care documenting and reviewing chart
[2022-02-14 13:58] VITALS: BMI 35.9
[2022-02-14 16:42] LABS: Glucose,Whole Blood 112 mg/dL (70-110)
[2022-02-14 20:07] LABS: Glucose,Whole Blood 104 mg/dL (70-110)
[2022-02-14] MEDS: ATORVASTATIN 40 MG TAB PO SCH (20:18)
[2022-02-15 06:07] LABS: Glucose,Whole Blood 111 mg/dL (70-110)
[2022-02-15] MEDS: INSULIN ASPART (NovoLOG) 100 UNIT/ML VIAL SQ SCH ×3 (06:10→18:09)
[2022-02-15] MEDS: PANTOPRAZOLE 40 MG TABLET PO SCH (06:24)
[2022-02-15 07:41] LABS: African American GFR (CKD) >90 (>60 ml/min/1.73 sqM); Anion Gap 11 mmol/L; Blood Urea Nitrogen 14 mg/dL (9-20); Calcium 8.8 mg/dL (8.4-10.2); Carbon Dioxide 23 mmol/L (22-30); Chloride 101 mmol/L (98-107); Glucose 110 mg/dL (74-99); Magnesium 2.1 mg/dL (1.6-2.3); Non-African American GFR(CKD) 86 (>60 ml/min/1.73 sqM); Phosphorus 3.7 mg/dL (2.5-4.5); Potassium 3.9 mmol/L (3.5-5.1); Sodium 135 mmol/L (137-145)
[2022-02-15 07:53] LABS: Basophils % (A) 0 %; Eosinophils # (A) 0.3 k/uL (0-0.7); Eosinophils % (A) 3 %; HGB 15.8 gm/dL (13.0-17.5); Lymphocytes # (A) 1.4 k/uL (1.0-4.8); Lymphocytes % (A) 16 %; MCH 29.5 pg (25.0-35.0); MCHC 32.3 g/dL (31.0-37.0); MCV 91.3 fL (80.0-100.0); Mean Platelet Volume 7.1; Monocytes # (A) 0.7 k/uL (0-1.0); Monocytes % (A) 8 %; Neutrophils # (A) 6.2 k/uL (1.3-7.7); Neutrophils % (A) 71 %; Platelet Count 231 k/uL (150-450); RBC 5.37 m/uL (4.30-5.90); RDW 12.6 % (11.5-15.5); WBC 8.8 k/uL (3.8-10.6)
--- NOTE | 2022-02-15 08:32 | P.PN ---
Subjective Progress Note Date: 02/14/22 This is a telemedicine neurology follow performed today on 02/14/2022. Patient was seen for a follow-up. Patient states that he feels tired. Denies any changes in his condition. Denies any headache. No new worsening. Objective - Vital Signs Vital signs: Vital Signs Temp 97.8 F 02/14/22 08:12 Pulse 74 02/14/22 08:12 Resp 16 02/14/22 08:12 BP 166/91 02/14/22 08:12 Pulse Ox 97 02/14/22 08:12 FiO2 Intake & Output 02/13/22 02/14/22 02/14/22 18:59 06:59 18:59 Intake Total 0 Output Total 250 550 490 Balance -250 550 -490 Intake: Oral 0 Output: Urine 250 550 490 Other: Voiding Method Urinal Urinal Urinal # Voids 1 1 - Exam Patient is a late middle aged male, appears younger than his stated age. Patient is alert awake oriented to time place and person. Speech is clear with no aphasia or dysarthria. . Patient can name and repeat very well. Attention, concentration and fund of knowledge is adequate. Examination significant for visual field deficit over right upper quadrant. Patient has right pronator drift, does not hit the bed. Right arm is slightly weak at the deltoid. Ataxia right side. - Labs CBC & Chem 7: 02/15/22 07:01 02/15/22 07:01 Labs: Abnormal Lab Results - Last 24 Hours (Table) 02/13/22 02/13/22 02/13/22 Range/Units 08:47 11:31 16:38 POC Glucose (mg/dL) 132 H 113 H (70-110) mg/dL Cholesterol 201.00 H (0.00-200.00) mg/dL HDL Cholesterol 64.40 H (40.00-60.00) mg/dL 02/13/22 Range/Units 20:23 POC Glucose (mg/dL) 122 H (70-110) mg/dL Cholesterol (0.00-200.00) mg/dL HDL Cholesterol (40.00-60.00) mg/dL Assessment and Plan Assessment: * Acute ischemic stroke with mild right-sided weakness, but significant ataxia of the right arm and leg. Examination also revealed right upper quadrant visual field defect. Patient's current NIH stroke scale is 4. Appears embolic in nature. * Diabetes, newly diagnosed, A1c 6.8 * Hypertension * Hyperlipidemia Plan: * MRI of brain revealed subacute infarct involving the left thalamus, left occipital lobe and hippocampus. I personally reviewed MRI of the brain and agree with the findings. This CVA appears embolic in nature. * Patient to be maintained on Brilinta 90 mg twice a day and aspirin 81 mg daily for one month. Thereafter may maintain on single agent aspirin 81 mg daily. This plan may change based upon workup as below. * 2-D echo revealed normal left ventricular function with EF 50-55%. Left atrial size is normal. Bubble study could not be performed. Consider MARIANA. * Cardiology input appreciated. Patient to undergo MARIANA on Wednesday. * Fasting a.m. lipid panel with cholesterol 201, LDL 123, HDL 64 and triglycerides 67.2. Agree with Lipitor 40 mg. * Hemoglobin A1c 6.8. Patient started on Tradjenta. * PT OT, evaluate gait * Permissive hypertension for next 24 hours. * DVT prophylaxis: Patient started on heparin 5000 units subcu every 12 hours.
[2022-02-15] MEDS: LINAGLIPTIN 5 MG TABLET PO SCH (09:38)
[2022-02-15] MEDS: ASPIRIN 81 MG PO SCH (09:38)
[2022-02-15] MEDS: TICAGRELOR 90 MG TAB PO SCH ×2 (09:38→20:03)
[2022-02-15] MEDS: METOPROLOL SUCCINATE (ER) 25 MG TAB.ER.24H PO SCH (09:38)
[2022-02-15] MEDS: HEPARIN SODIUM,PORCINE/PF 5,000 UNIT/0.5 ML SYRINGE SQ SCH ×2 (09:39→20:03)
[2022-02-15 11:45] LABS: Glucose,Whole Blood 146 mg/dL (70-110)
--- NOTE | 2022-02-15 13:01 | P.PN ---
Subjective Progress Note Date: 02/15/22 The patient is a 66-year-old male who has not seen a physician in the past who presented with right-sided weakness and evidence of CVA. Cardiology consultation was requested to undergo MARIANA. Prior to the event the patient has no complaints. He has been active physically without difficulties. He denies a ny exertional chest discomfort or dyspnea. He has no palpitations, no PND orthopnea or peripheral edema. He has been in sinus mechanism since his admission. He had right-sided weakness, slightly better but continues to feel fatigued. He had an echocardiogram that showed a normal left ventricle size and systolic function but could not comment on the bubble study. The patient has no history of documented hypertension, it has been elevated here. He is a nonsmoker. Medications: He was taking Nexium as an outpatient and has been started on aspirin, Brilinta, Toprol Lipitor after admission 02/15/2022 The patient was seen and examined resting comfortably in bed. Plan for MARIANA tomorrow. Procedure and rationale reviewed with the patient. He continues to have right side deficits. Neurology is following. He is maintaining sinus mechanism. Objective - Vital Signs Vital signs: Vital Signs Temp 97.9 F 02/15/22 08:00 Pulse 83 02/15/22 11:44 Resp 18 02/15/22 03:49 BP 167/94 02/15/22 11:44 Pulse Ox 97 02/15/22 11:44 FiO2 Intake & Output 02/14/22 02/15/22 02/15/22 18:59 06:59 18:59 Intake Total 118 Output Total 1540 580 Balance -1422 -580 Weight 123.377 kg Intake: Oral 118 Output: Urine 1540 580 Other: Voiding Method Urinal Urinal Urinal - Exam Head: Normocephalic. Eyes: Sclerae nonicteric. Neck: Good carotid upstroke, no bruit, no jugular venous distention. Lungs: Clear to auscultation. Heart: Regular rate and rhythm, S1-S2, no S3, no rub. No murmur. Abdomen: Soft nontender, positive bowel sounds no organomegaly. Extremities: No edema, intact distal pulses. Ecchymosis noted on the right lower extremity and right-sided weakness - Labs CBC & Chem 7: 02/15/22 07:01 02/15/22 07:01 Labs: Abnormal Lab Results - Last 24 Hours (Table) 02/14/22 02/15/22 02/15/22 Range/Units 16:39 06:06 07:01 Sodium 135 L (137-145) mmol/L Glucose 110 H (74-99) mg/dL POC Glucose (mg/dL) 112 H 111 H (70-110) mg/dL 02/15/22 Range/Units 11:43 Sodium (137-145) mmol/L Glucose (74-99) mg/dL POC Glucose (mg/dL) 146 H (70-110) mg/dL Assessment and Plan Assessment: 1. Right-sided weakness with evidence of CVA 2. Hypertension not documented in the past 3. Hyperlipidemia, not treated in the past Plan: From cardiology's perspective MARIANA tomorrow. NPO after midnight. Continue current medications. Further recommendations will be made depending on the findings. FAX MACHINE OPERATOR note has been reviewed, I agree with a documented findings and plan of care. Patient was seen and examined.
--- NOTE | 2022-02-15 13:22 | P.PN ---
Subjective Progress Note Date: 02/15/22 The patient was seen this morning, he continues to complain of right-sided weakness and difficulties moving around. No acute events overnight Objective - Vital Signs Vital signs: Vital Signs Temp 97.9 F 02/15/22 08:00 Pulse 83 02/15/22 11:44 Resp 18 02/15/22 03:49 BP 167/94 02/15/22 11:44 Pulse Ox 97 02/15/22 11:44 FiO2 Intake & Output 02/14/22 02/15/22 02/15/22 18:59 06:59 18:59 Intake Total 118 Output Total 1540 580 Balance -7032 580 Weight 123.377 kg Intake: Oral 118 Output: Urine 1540 580 Other: Voiding Method Urinal Urinal Urinal - Exam General: [non toxic], [no distress], [appears at stated age] Derm: [warm], [dry] Head: [atraumatic], [normocephalic], [symmetric] Eyes: [EOMI], [no lid lag], [anicteric sclera] Mouth: [no lip lesion], [mucus membranes moist] Cardiovascular: [S1S2 reg], [no murmur], [positive posterior tibial pulse bilateral], Lungs: [CTA bilateral], [no rhonchi, no rales] , [no accessory muscle use] Abdominal: [soft], [ nontender to palpation], [no guarding], [no appreciable organomegaly] Ext: [no gross muscle atrophy], [no edema], [no contractures] decreased strength in right upper or lower extremities Neuro: , right hemiparesis Psych: [Alert], [oriented], [appropriate affect] - Labs CBC & Chem 7: 02/15/22 07:01 02/15/22 07:01 Labs: Abnormal Lab Results - Last 24 Hours (Table) 02/14/22 02/15/22 02/15/22 Range/Units 16:39 06:06 07:01 Sodium 135 L (137-145) mmol/L Glucose 110 H (74-99) mg/dL POC Glucose (mg/dL) 112 H 111 H (70-110) mg/dL 02/15/22 Range/Units 11:43 Sodium (137-145) mmol/L Glucose (74-99) mg/dL POC Glucose (mg/dL) 146 H (70-110) mg/dL Assessment and Plan Assessment: 1. Right hemiparesis secondary to subacute CVA Neuro check Seizure precautions Aspirin and statin initiated PT OT Neurology recommendations appreciated Patient was seen by cardiology plans for MARIANA on Wednesday 2. New-onset type 2 diabetes mellitus hemoglobin A1c 6.8 Tragenta started consult dietary Insulin sliding scale initiated 3.History of hypertension Resume low-dose beta moi Monitor vitals 4. History of hyperlipidemia Resume statin 6. GI DVT prophylaxis 7. A.m. labs Patient is full code Disposition inpatient rehab Is a patent length of stay is greater than 2 midnight stay Greater than 38 minutes spent coordinating care documenting and reviewing chart
[2022-02-15 16:38] LABS: Glucose,Whole Blood 96 mg/dL (70-110)
[2022-02-15] MEDS: ATORVASTATIN 40 MG TAB PO SCH (20:03)
[2022-02-15 20:13] LABS: Glucose,Whole Blood 97 mg/dL (70-110)
--- NOTE | 2022-02-15 21:25 | P.PN ---
Subjective Progress Note Date: 02/15/22 This is a telemedicine neurology follow performed today on 02/15/2022. Patient was seen for a follow-up. Patient states that he feels stronger, still with some problems with coordination, but mentally feels better. Denies any worsening in his condition. Denies any headache. Objective - Vital Signs Vital signs: Vital Signs Temp 98.6 F 02/15/22 20:02 Pulse 71 02/15/22 20:02 Resp 16 02/15/22 20:02 BP 130/81 02/15/22 20:02 Pulse Ox 96 02/15/22 20:02 FiO2 Intake & Output 02/15/22 02/15/22 02/16/22 06:59 18:59 06:59 Intake Total 118 Output Total 580 150 150 Balance -580 -32 -150 Intake: Oral 118 Output: Urine 580 150 150 Other: Voiding Method Urinal Urinal # Voids 1 1 - Exam Patient is a late middle aged male, appears younger than his stated age. Patient is alert awake oriented to time place and person. Speech is clear with no aphasia or dysarthria. . Patient can name and repeat very well. A ttention, concentration and fund of knowledge is adequate. Examination significant for visual field deficit over right upper quadrant. Patient has right pronator drift, does not hit the bed. Right arm is slightly weak at the deltoid about 5-. Lockstitcher is 5/5. Patient has mild ataxia for [id number] testing on the right. Right leg also better for [id number]. - Labs CBC & Chem 7: 02/15/22 07:01 02/15/22 07:01 Labs: Abnormal Lab Results - Last 24 Hours (Table) 02/15/22 02/15/22 02/15/22 Range/Units 06:06 07:01 11:43 Sodium 135 L (137-145) mmol/L Glucose 110 H (74-99) mg/dL POC Glucose (mg/dL) 111 H 146 H (70-110) mg/dL Assessment and Plan Assessment: * Acute ischemic stroke with mild right-sided weakness, but significant ataxia of the right arm and leg. Examination also revealed right upper quadrant visual field defect. Patient's current NIH stroke scale is 4. Appears embolic in nature. * Diabetes, newly diagnosed, A1c 6.8 * Hypertension * Hyperlipidemia Plan: * MRI of brain revealed subacute infarct involving the left thalamus, left occipital lobe and hippocampus. I personally reviewed MRI of the brain and agree with the findings. This CVA appears embolic in nature. * Patient to be maintained on Brilinta 90 mg twice a day and aspirin 81 mg daily for one month. Thereafter may maintain on single agent aspirin 81 mg daily. This plan may change based upon the results of MARIANA. * 2-D echo revealed normal left ventricular function with EF 50-55%. Left atrial size is normal. Bubble study could not be performed. Consider MARIANA. * Cardiology input appreciated. Patient to undergo MARIANA on Wednesday. * Fasting a.m. lipid panel with cholesterol 201, LDL 123, HDL 64 and triglycerides 67.2. Agree with Lipitor 40 mg. * Hemoglobin A1c 6.8. Patient started on Tradjenta. * PT OT, evaluate gait * Optimize control of blood pressure to target <140/90 * DVT prophylaxis: Patient started on heparin 5000 units subcu every 12 hours. * Physical medicine and rehab following. Patient would be a good candidate for inpatient rehab. * Neurologically clear, if the MARIANA comes back completely negative. Dr. Stalin Anthony starting neurology service in the morning.
[2022-02-16 06:08] LABS: Glucose,Whole Blood 102 mg/dL (70-110)
[2022-02-16] MEDS: PANTOPRAZOLE 40 MG TABLET PO SCH (06:23)
[2022-02-16] MEDS: INSULIN ASPART (NovoLOG) 100 UNIT/ML VIAL SQ SCH ×3 (06:23→17:01)
[2022-02-16] MEDS ORDERED: fentaNYL (PF) 50 MCG/ML 2 ML AMP ONE (07:00)
[2022-02-16] MEDS ORDERED: BENZOCAINE SPRAY 1 CAN MUCOUS MEM ONE (07:18)
[2022-02-16] MEDS ORDERED: IV FLUID CONTINUATION 950 ML IV ONE (07:19)
[2022-02-16] MEDS ORDERED: MIDAZOLAM 2 MG/2 ML VIAL IV ONE ×2 (07:25→07:27)
[2022-02-16] MEDS ORDERED: fentaNYL (PF) 50 MCG/ML 2 ML AMP IV ONE (07:25)
--- NOTE | 2022-02-16 07:39 | P.PCN ---
Date of Procedure: 02/16/22 Description of Procedure: Indication: Evaluation of left atrial appendage Procedure Description: After explaining the procedure to the patient, it's risk and complications, blood pressure, heart rate and O2 saturation were monitored. The throat was sprayed with Cetacaine. Patient received 3 mg intravenous Versed, 50 mcg intravenous fentanyl. The probe was introduced into the esophagus without difficulty. Images were obtained. Following that, the probe was removed. There was no immediate complication. Findings: Left atrial size is normal, the ventricle size and systolic function are normal. Left atrial appendage is normal. The aortic valve, mitral valve, and tricuspid valve are normal. Descending thoracic aorta appears to be normal. Contrast bubble study revealed no shunting across the intra-atrial septum with Valsalva maneuver. No pericardial effusion was noted. Doppler: Pulse wave and color Doppler were obtained, mild mitral, aortic and tricuspid regurgitation. No shunting was noted across the intra-atrial septum Conclusion: 1. Normal appearance of the left atrial appendage 2. Normal in size and systolic function 3. Mild mitral, aortic and tricuspid regurgitation 4. No shunting across the intra-atrial septum 5. Normal in appearance of the descending thoracic aorta
[2022-02-16] MEDS: ASPIRIN 81 MG PO SCH (09:14)
[2022-02-16] MEDS: LINAGLIPTIN 5 MG TABLET PO SCH (09:14)
[2022-02-16] MEDS: METOPROLOL SUCCINATE (ER) 25 MG TAB.ER.24H PO SCH (09:14)
[2022-02-16] MEDS: TICAGRELOR 90 MG TAB PO SCH ×2 (09:14→19:51)
[2022-02-16] MEDS: HEPARIN SODIUM,PORCINE/PF 5,000 UNIT/0.5 ML SYRINGE SQ SCH ×2 (09:14→19:51)
[2022-02-16] MEDS: SODIUM CHLORIDE 0.9% 1,000 ML IV SCH (09:15)
[2022-02-16 09:34] LABS: Basophils % (A) 0 %; Eosinophils # (A) 0.2 k/uL (0-0.7); Eosinophils % (A) 2 %; HCT 52.2 % (39.0-53.0); HGB 17.3 gm/dL (13.0-17.5); Lymphocytes # (A) 1.1 k/uL (1.0-4.8); Lymphocytes % (A) 10 %; MCH 30.4 pg (25.0-35.0); MCHC 33.1 g/dL (31.0-37.0); MCV 91.7 fL (80.0-100.0); Mean Platelet Volume 7.3; Monocytes # (A) 0.8 k/uL (0-1.0); Monocytes % (A) 7 %; Neutrophils # (A) 8.6 k/uL (1.3-7.7); Neutrophils % (A) 79 %; Platelet Count 281 k/uL (150-450); RDW 12.7 % (11.5-15.5); WBC 10.9 k/uL (3.8-10.6)
[2022-02-16 09:59] LABS: Magnesium 2.1 mg/dL (1.6-2.3); Phosphorus 4.1 mg/dL (2.5-4.5); Potassium 4.4 mmol/L (3.5-5.1)
[2022-02-16 11:43] LABS: Glucose,Whole Blood 140 mg/dL (70-110)
--- NOTE | 2022-02-16 15:37 | P.PN ---
Subjective Patient seen and examined at bedside. Patient denies chest pain shortness of breath nausea vomiting fevers or chills. Patient continues to have right sided hemiparesis. Objective - Vital Signs Vital signs: Vital Signs Temp 97.9 F 02/16/22 12:00 Pulse 93 02/16/22 14:00 Resp 17 02/16/22 14:00 BP 138/95 02/16/22 12:00 Pulse Ox 98 02/16/22 12:00 FiO2 Intake & Output 02/15/22 02/16/22 02/16/22 18:59 06:59 18:59 Intake Total 118 530 Output Total 150 550 150 Balance -32 -550 380 Intake: IV 50 Oral 118 480 Output: Urine 150 550 150 Stool 0 Urine/Stool Mix 0 Emesis 0 Oral Regurgitation 0 Other: Voiding Method Urinal Urinal # Voids 1 1 0 # Bowel Movements 0 - Exam General: [non toxic], [no distress], [appears at stated age] Derm: [warm], [dry] Head: [atraumatic], [normocephalic], [symmetric] Eyes: [EOMI], [no lid lag], [anicteric sclera] Mouth: [no lip lesion], [mucus membranes moist] Cardiovascular: [S1S2 reg], [no murmur], [positive posterior tibial pulse bilateral], Lungs: [CTA bilateral], [no rhonchi, no rales] , [no accessory muscle use] Abdominal: [soft], [ nontender to palpation], [no guarding], [no appreciable organomegaly] Ext: [no gross muscle atrophy], [no edema], [no contractures] decreased strength in right upper or lower extremities Neuro: , right hemiparesis Psych: [Alert], [oriented], [appropriate affectt] - Labs CBC & Chem 7: 02/16/22 08:25 02/16/22 08:25 Labs: Abnormal Lab Results - Last 24 Hours (Table) 02/16/22 02/16/22 02/16/22 Range/Units 08:25 08:25 11:41 WBC 10.9 H (3.8-10.6) k/uL Neutrophils # 8.6 H (1.3-7.7) k/uL Glucose 101 H (74-99) mg/dL POC Glucose (mg/dL) 140 H (70-110) mg/dL Assessment and Plan Assessment: 1. Right hemiparesis secondary to subacute CVA Neuro check Seizure precautions Aspirin and statin initiated PT OT Neurology recommendations appreciated Check hemoglobin A1c Check lipid panel Check TSH and free T4 2. New-onset type 2 diabetes mellitus Tragenta started consult dietary 3.History of hypertension Resume low-dose beta moi Monitor vitals 4. History of hyperlipidemia Resume statin 5. Hyperglycemia concern for diabetes mellitus undiagnosed Hemoglobin A1c ordered Insulin sliding scale initiated 6. GI DVT prophylaxis 7. A.m. labs Patient is full code Disposition inpatient rehab once insurance information is provided and authorized Is a patent length of stay is greater than 2 midnight stay Greater than 38 minutes spent coordinating care documenting and reviewing chart
[2022-02-16 16:27] LABS: Glucose,Whole Blood 126 mg/dL (70-110)
[2022-02-16 19:41] LABS: Glucose,Whole Blood 117 mg/dL (70-110)
[2022-02-16] MEDS: ATORVASTATIN 40 MG TAB PO SCH (19:51)
[2022-02-17] MEDS: PANTOPRAZOLE 40 MG TABLET PO SCH (05:17)
[2022-02-17 05:51] LABS: Glucose,Whole Blood 108 mg/dL (70-110)
[2022-02-17] MEDS: INSULIN ASPART (NovoLOG) 100 UNIT/ML VIAL SQ SCH ×3 (06:09→16:49)
[2022-02-17] MEDS: METOPROLOL SUCCINATE (ER) 25 MG TAB.ER.24H PO SCH (08:51)
[2022-02-17] MEDS: LINAGLIPTIN 5 MG TABLET PO SCH (08:51)
[2022-02-17] MEDS: TICAGRELOR 90 MG TAB PO SCH ×2 (08:51→20:32)
[2022-02-17] MEDS: ASPIRIN 81 MG PO SCH (08:52)
[2022-02-17] MEDS: HEPARIN SODIUM,PORCINE/PF 5,000 UNIT/0.5 ML SYRINGE SQ SCH ×2 (08:52→20:32)
[2022-02-17] MEDS: SODIUM CHLORIDE 0.9% 1,000 ML IV SCH (08:52)
[2022-02-17 09:01] LABS: Basophils # (A) 0.1 k/uL (0-0.2); Basophils % (A) 1 %; Eosinophils # (A) 0.2 k/uL (0-0.7); Eosinophils % (A) 3 %; HCT 52.1 % (39.0-53.0); HGB 17.4 gm/dL (13.0-17.5); Lymphocytes # (A) 1.3 k/uL (1.0-4.8); Lymphocytes % (A) 14 %; MCH 30.9 pg (25.0-35.0); MCHC 33.4 g/dL (31.0-37.0); MCV 92.4 fL (80.0-100.0); Mean Platelet Volume 7.3; Monocytes # (A) 0.6 k/uL (0-1.0); Monocytes % (A) 6 %; Neutrophils # (A) 6.7 k/uL (1.3-7.7); Neutrophils % (A) 74 %; Platelet Count 314 k/uL (150-450); RBC 5.64 m/uL (4.30-5.90); RDW 12.8 % (11.5-15.5)
[2022-02-17 09:12] LABS: ALT 33 U/L (4-49); AST 45 U/L (17-59); African American GFR (CKD) >90 (>60 ml/min/1.73 sqM); Albumin 4.5 g/dL (3.5-5.0); Alkaline Phosphatase 154 U/L (38-126); Anion Gap 14 mmol/L; Blood Urea Nitrogen 15 mg/dL (9-20); Calcium 9.2 mg/dL (8.4-10.2); Carbon Dioxide 22 mmol/L (22-30); Chloride 100 mmol/L (98-107); Glucose 139 mg/dL (74-99); Non-African American GFR(CKD) 84 (>60 ml/min/1.73 sqM); Potassium 4.1 mmol/L (3.5-5.1); Sodium 136 mmol/L (137-145); Total Bilirubin 1.5 mg/dL (0.2-1.3); Total Protein 7.9 g/dL (6.3-8.2)
[2022-02-17 11:36] LABS: Glucose,Whole Blood 115 mg/dL (70-110)
--- NOTE | 2022-02-17 11:58 | P.PN ---
Subjective The patient is a 66-year-old male who has not seen a physician in the past who presented with right-sided weakness and evidence of CVA. Cardiology c onsultation was requested to undergo MARIANA. Prior to the event the patient has no complaints. He has been active physically without difficulties. He denies any exertional chest discomfort or dyspnea. He has no palpitations, no PND orthopnea or peripheral edema. He had right-sided weakness, slightly better but continues to feel fatigued. He had an echocardiogram that showed a normal left ventricle size and systolic function 50-55%, but could not comment on the bubble study. Patient denies any complaints of shortness of breath or chest pain. Vitals signs are stable. He underwent MARIANA on 02/16 which revealed 1. Normal appearance of the left atrial appendage 2. Normal in size and systolic function 3. Mild mitral, aortic and tricuspid regurgitation 4. No shunting across the intra-atrial septum 5. Normal in appearance of the descending thoracic aorta GENERAL: Well-appearing, well-nourished and in no acute distress. NECK: Supple without JVD LUNGS: Breath sounds clear to auscultation bilaterally. Respiration equal and unlabored. No wheezes, rales or rhonchi. HEART: Regular rate and rhythm without murmurs, rubs or gallops. S1 and S2 heard. EXTREMITIES: Normal range of motion, no edema. No clubbing or cyanosis. Peripheral pulses intact. ASSESSMENT Right-sided weakness with evidence of CVA Hypertension not documented in the past Hyperlipidemia, not treated in the past PLAN MARIANA completed. No further changes from a cardiology perspective, we'll follow the patient as needed. Please reconsult if needed. Nurse Practitioner note has been reviewed, I agree with a documented findings and plan of care. Patient was seen and examined. Objective - Vital Signs Vital signs: Vital Signs Temp 98.5 F 02/16/22 00:00 Pulse 81 02/16/22 07:33 Resp 18 02/16/22 04:23 BP 136/88 02/16/22 07:33 Pulse Ox 96 02/16/22 07:33 FiO2 Intake & Output 02/15/22 02/16/22 02/16/22 18:59 06:59 18:59 Intake Total 118 170 Output Total 150 550 Balance -32 -550 170 Intake: IV 50 Oral 118 120 Output: Urine 150 550 Other: Voiding Method Urinal # Voids 1 1 - Labs CBC & Chem 7: 02/17/22 08:02 02/17/22 08:02 Labs: Abnormal Lab Results - Last 24 Hours (Table) 02/15/22 02/16/22 02/16/22 Range/Units 11:43 08:25 08:25 WBC 10.9 H (3.8-10.6) k/uL Neutrophils # 8.6 H (1.3-7.7) k/uL Glucose 101 H (74-99) mg/dL POC Glucose (mg/dL) 146 H (70-110) mg/dL
--- NOTE | 2022-02-17 14:59 | P.PN ---
Subjective Progress Note Date: 02/17/22 Principal diagnosis: stroke Subjective: Patient seen and examined at bedside. No acute events overnight. He claims that he is feeling stronger than before. He denies any chest pain, shortness of breath, nausea, vomiting, urinary complaints, or bowel complaints. Pertinent positives and negatives as discussed above, a complete review of systems was performed and all other systems are negative. Vitals Signs Reviewed. General: nontoxic, no distress, appears at stated age Derm: warm, dry Head: atraumatic, normocephalic, symmetric Eyes: EOMI, no lid lag, anicteric sclera Mouth: no lip lesion, mucus membranes moist Cardiovascular: S1S2 reg, no murmur Lungs: CTA bilateral, no rhonchi, no rales , no accessory muscle use Abdominal: soft, nontender to palpation, no guarding, no appreciable organomegaly Ext: no gross muscle atrophy, no edema, no contractures Neuro: CN II-XI grossly intact, right-sided finger to nose weaker compared to left Psych: Alert, oriented, appropriate affect Assessment and Plan: Right hemiparesis secondary to subacute CVA -Neuro checks Seizure precautions Aspirin, brilinta and statin Continue working with physical therapy Neurology following A1c - 6.8 Lipid panel - LDL 123 TSH - normal New-onset type 2 diabetes -Started on tradgenta -Sliding-scale insulin Hypertension -started on low-dose beta moi Dyslipidemia -started on statin DVT ppx: heparin sq Code status: Home Code Anticipated discharge place: Home with home care Anticipated discharge time: Likely tomorrow Objective - Vital Signs Vital signs: Vital Signs Temp 98.4 F 02/17/22 12:00 Pulse 84 02/17/22 14:00 Resp 17 02/17/22 14:00 BP 133/100 02/17/22 12:00 Pulse Ox 98 02/17/22 12:00 FiO2 Intake & Output 02/16/22 02/17/22 02/17/22 18:59 06:59 18:59 Intake Total 530 Output Total 150 0 150 Balance 380 0 -150 Intake: IV 50 Oral 480 Output: Urine 150 150 Stool 0 0 0 Urine/Stool Mix 0 Emesis 0 Oral Regurgitation 0 Other: Voiding Method Urinal Urinal Urinal # Voids 0 1 # Bowel Movements 0 - Labs CBC & Chem 7: 02/17/22 08:02 02/17/22 08:02 Labs: Abnormal Lab Results - Last 24 Hours (Table) 02/16/22 02/16/22 02/17/22 Range/Units 16:24 19:38 08:02 Sodium 136 L (137-145) mmol/L Glucose 139 H (74-99) mg/dL POC Glucose (mg/dL) 126 H 117 H (70-110) mg/dL Total Bilirubin 1.5 H (0.2-1.3) mg/dL Alkaline Phosphatase 154 H (38-126) U/L 02/17/22 Range/Units 11:34 Sodium (137-145) mmol/L Glucose (74-99) mg/dL POC Glucose (mg/dL) 115 H (70-110) mg/dL Total Bilirubin (0.2-1.3) mg/dL Alkaline Phosphatase (38-126) U/L
[2022-02-17 16:44] LABS: Glucose,Whole Blood 109 mg/dL (70-110)
[2022-02-17 19:31] LABS: Glucose,Whole Blood 104 mg/dL (70-110)
[2022-02-17] MEDS: ATORVASTATIN 40 MG TAB PO SCH (20:32)
[2022-02-18 04:32] VITALS: RESP 17
[2022-02-18 05:41] LABS: Glucose,Whole Blood 109 mg/dL (70-110)
[2022-02-18] MEDS: PANTOPRAZOLE 40 MG TABLET PO SCH (06:09)
[2022-02-18] MEDS: INSULIN ASPART (NovoLOG) 100 UNIT/ML VIAL SQ SCH ×2 (06:09→12:11)
[2022-02-18] MEDS: SODIUM CHLORIDE 0.9% 1,000 ML IV SCH (08:35)
[2022-02-18] MEDS: LINAGLIPTIN 5 MG TABLET PO SCH (08:35)
[2022-02-18] MEDS: HEPARIN SODIUM,PORCINE/PF 5,000 UNIT/0.5 ML SYRINGE SQ SCH (08:35)
[2022-02-18] MEDS: TICAGRELOR 90 MG TAB PO SCH (08:35)
[2022-02-18] MEDS: ASPIRIN 81 MG PO SCH (08:35)
[2022-02-18] MEDS: METOPROLOL SUCCINATE (ER) 25 MG TAB.ER.24H PO SCH (08:35)
[2022-02-18 11:36] LABS: Glucose,Whole Blood 114 mg/dL (70-110)
[2022-02-18 13:34] VITALS: BP 137/81; PULSE 68; TEMP 98.4
--- NOTE | 2022-02-18 15:10 | P.DS ---
Providers Date of admission: 02/12/22 08:01 Expected date of discharge: 02/18/22 Attending physician: Nayeli Hernandez MD Consults: 02/12/22 08:01 Consult Physician Routine Consulting Provider: Naomi Almonte Consult Reason/Comments: CVA Do you want consulting provider notified?: Yes 02/13/22 13:10 Consult Physician Routine Consulting Provider: Alex Finnegan Consult Reason/Comments: evaluate for inpatient rehab Do you want consulting provider notified?: Yes 02/14/22 09:42 Consult Physician Routine Consulting Provider: Tim Duarte Consult Reason/Comments: Acute CVA, suboptimal echo, MARIANA recommended per ECHO reprort Do you want consulting provider notified?: Yes Primary care physician: Stated None Hospital Course: Discharge Diagnosis: Right hemiparesis secondary to subacute CVA New onset type 2 diabetes Hypertension Dyslipidemia Hospital Course: 66-year-old male with history of hypertension and dyslipidemia presented with right hemiparesis. CT and MRI showed subacute infarct in the left thalamic, hippocampal region. Neurology was consulted. Patient was started on Brilinta and ASA for 1 month. Maintain patient on ASA after that. LVEF was 50-55% on TTE. MARIANA demonstrated a normal appearance of left atrial appendage, normal size and systolic function, no PFO on MARIANA. A1c was 6.1. LDL was 123. Patient was also started on metformin, Linagliptin, and atorvastatin. He was also started on metoprolol for HTN. Will recommend a different agent as outpatient. Will be going home with home care. Patient seen and examined at bedside. Vital signs reviewed and stable. General: nontoxic, no distress, appears at stated age Derm: warm, dry Head: atraumatic, normocephalic, symmetric Eyes: EOMI, no lid lag, anicteric sclera Mouth: no lip lesion, mucus membranes moist Cardiovascular: S1S2 reg, no murmur Lungs: CTA bilateral, no rhonchi, no rales , no accessory muscle use Abdominal: soft, nontender to palpation, no guarding, no appreciable organomegaly Ext: no gross muscle atrophy, no edema, no contractures Neuro: CN II-XI grossly intact, right-sided finger to nose weaker compared to left Psych: Alert, oriented, appropriate affect A total of 36 minutes of time were spent preparing this complex discharge summary. Patient was discharged on 02/18/22 at 9:58. Patient Condition at Discharge: Stable Plan - Discharge Summary Discharge Rx Participant: Yes New Discharge Prescriptions: New Atorvastatin [Lipitor] 40 mg PO HS #30 tab Metoprolol Succinate (ER) [Toprol XL] 25 mg PO DAILY #30 tab metFORMIN HCL 500 mg PO DAILY #30 tablet Aspirin 81 mg PO DAILY #30 tab Ticagrelor [Brilinta] 90 mg PO BID #60 tab Linagliptin [Tradjenta] 5 mg PO DAILY #30 tab Continue Omeprazole Magnesium [PriLOSEC OTC] 20 mg PO DAILY PRN PRN Reason: Heartburn Discharge Medication List Omeprazole Magnesium [PriLOSEC OTC] 20 mg PO DAILY PRN 02/12/22 [History] Aspirin 81 mg PO DAILY #30 tab 02/18/22 [Rx] Atorvastatin [Lipitor] 40 mg PO HS #30 tab 02/18/22 [Rx] Linagliptin [Tradjenta] 5 mg PO DAILY #30 tab 02/18/22 [Rx] Metoprolol Succinate (ER) [Toprol XL] 25 mg PO DAILY #30 tab 02/18/22 [Rx] Ticagrelor [Brilinta] 90 mg PO BID #60 tab 02/18/22 [Rx] metFORMIN HCL 500 mg PO DAILY #30 tablet 02/18/22 [Rx] Follow up Appointment(s)/Referral(s): Adilene Dickens MD [STAFF PHYSICIAN] - 2 Weeks (OFFICE WILL CALL YOU WITH APPOINTMENT DATE AND TIME.) [facility] [NON-STAFF] - 02/24/22 9:30 am [facility] Visiting Nurse, [NON-STAFF] - (AGENCY WILL CONTACT YOU.) Patient Instructions/Handouts: Metoprolol (By mouth), Aspirin (By mouth), Metformin (By mouth), Atorvastatin (By mouth), Linagliptin (By mouth), Ticagrelor (By mouth), Type 2 Diabetes in Adults: New Diagnosis (DC), Stroke (DC), How to Check your Blood Sugar (DC) Discharge Disposition: HOME WITH HOME HEALTH SERVICES
== END 2022-02-18 15:23 | disposition home health service (06) | DRG 65 ==
LOC: EC 06:24 → 3SCARD 08:01
PROVIDERS: ADMIT Internal Medicine; ATTEND Internal Medicine
PROC: B24BZZ4 Ultrasonography of Heart with Aorta, Transesophageal (ICD-10-PCS; principal; 2022-02-16 08:25)
DX: I63.9 Cerebral infarction, unspecified (principal); G81.91 Hemiplegia, unspecified affecting right dominant side; E11.65 Type 2 diabetes mellitus with hyperglycemia; E78.5 Hyperlipidemia, unspecified; H53.40 Unspecified visual field defects; I08.3 Combined rheumatic disorders of mitral, aortic and tricuspid valves; R26.9 Unspecified abnormalities of gait and mobility; I10 Essential (primary) hypertension; J44.9 Chronic obstructive pulmonary disease, unspecified; K21.9 Gastro-esophageal reflux disease without esophagitis; R29.704 NIHSS score 4; R47.01 Aphasia; Z86.73 Personal history of transient ischemic attack (TIA), and cerebral infarction without residual deficits; Z60.2 Problems related to living alone; Z71.3 Dietary counseling and surveillance; Z79.899 Other long term (current) drug therapy
CPT/HCPCS: 36415; 70450; 70496; 70498; 70551; 71045; 80048; 80053; 80061; 83036; 83735; 84100; 84443; 84484; 85025; 85610; 85730; 93005; 93306; 93312; 93320; 93325; 96372; 99291

== ENCOUNTER → 2022-04-30 | Outpatient (CLI) | payer SELFPAY ==
[2022-04-30 10:36] LABS: ALT 74 U/L (10-49); AST 43 U/L (14-35); African American GFR (CKD) 103.5 (60.0-200.0); Albumin 4.2 g/dL (3.8-4.9); Albumin/Globulin Ratio 1.45 (1.60-3.17); Alkaline Phosphatase 139 U/L (41-126); BUN/Creat Ratio 12.33 Ratio (12.00-20.00); Blood Urea Nitrogen 11.1 mg/dL (9.0-27.0); Calcium 9.7 mg/dL (8.7-10.3); Carbon Dioxide 28.6 mmol/L (20.0-27.5); Chloride 98 mmol/L (96-109); Chol/HDL Ratio 2.34 Ratio; Globulin 2.9 g/dL (1.6-3.3); Glucose 118 mg/dL (70-110); LDL Cholesterol,Calculated 65.8 mg/dL (0.0-131.0); Non-African American GFR(CKD) 89.3 (60.0-200.0); Potassium 4.4 mmol/L (3.5-5.5); Sodium 137 mmol/L (135-145); Total Protein 7.1 g/dL (6.2-8.2)
== END | disposition home or self-care (01) ==
LOC: LABWHC1 07:05
PROVIDERS: ATTEND Internal Medicine Interventional Cardiology
DX: I10 Essential (primary) hypertension (principal); I63.9 Cerebral infarction, unspecified; E11.9 Type 2 diabetes mellitus without complications; E78.2 Mixed hyperlipidemia
CPT/HCPCS: 36415; 80053; 80061; 83036

== ENCOUNTER → 2022-10-22 | Outpatient (CLI) | payer MEDICARE, OTHER | END | disposition home or self-care (01) | LOC: LABWHC1 07:00 | PROVIDERS: ATTEND Family Medicine | DX: E11.9 Type 2 diabetes mellitus without complications (principal) | CPT/HCPCS: 36415; 83036 ==

== ENCOUNTER 2022-11-22 21:50 | Emergency (ER) | payer MEDICARE, OTHER ==
[2022-11-22 21:53] VITALS: TEMP 99
--- NOTE | 2022-11-22 22:29 | ED ---
General Adult HPI - General Chief complaint: Urogenital Stated complaint: Swelling in scrotum Time Seen by Provider: 11/22/22 21:55 Source: patient Mode of arrival: ambulatory Limitations: no limitations - History of Present Illness Initial comments: This patient is a 67-year-old man who presents to have evaluation for scrotal swelling. The patient states that over probably a week or more he has noticed that the left side of his groin and scrotum have written enlarged or swollen. He states he does not believe it is the testicle itself. He thinks he may have developed a hernia. He is not able to pinpoint any 1 particular lifting or injury that set things off. He denies having fever or chills. He denies having nausea, vomiting, diarrhea, constipation. The patient states there is a little bit of pressure. Onset/Timin -: week(s) Radiation: non-radiation Quality: dull Consistency: constant Improves with: none Worsens with: none Treatments Prior to Arrival: none - Related Data Home Medications Medication Instructions Recorded Confirmed Omeprazole Magnesium [PriLOSEC OTC] 20 mg PO DAILY PRN 02/12/22 02/12/22 Previous Rx's Medication Instructions Recorded Aspirin 81 mg PO DAILY #30 tab 02/18/22 Atorvastatin [Lipitor] 40 mg PO HS #30 tab 02/18/22 Linagliptin [Tradjenta] 5 mg PO DAILY #30 tab 02/18/22 Metoprolol Succinate (ER) [Toprol 25 mg PO DAILY #30 tab 02/18/22 XL] Ticagrelor [Brilinta] 90 mg PO BID #60 tab 02/18/22 metFORMIN HCL 500 mg PO DAILY #30 tablet 02/18/22 Allergies Allergy/AdvReac Type Severity Reaction Status Date / Time No Known Drug Allergies Allergy Unknown Verified 11/22/22 21:53 Review of Systems ROS Statement: Those systems with pertinent positive or pertinent negative responses have been documented in the HPI. ROS Other: All systems not noted in ROS Statement are negative. Constitutional: Denies: fever, chills Respiratory: Denies: cough, dyspnea Cardiovascular: Denies: chest pain, palpitations, edema Gastrointestinal: Reports: as per HPI, abdominal pain. Denies: nausea, vomiting, diarrhea, constipation Genitourinary: Reports: testicular mass. Denies: dysuria, frequency, hematuria Musculoskeletal: Denies: back pain Skin: Denies: rash Neurological: Denies: headache Past Medical History Past Medical History: Diabetes Mellitus, Hyperlipidemia, Hypertension History of Any Multi-Drug Resistant Organisms: None Reported Past Surgical History: No Surgical Hx Reported Past Anesthesia/Blood Transfusion Reactions: No Reported Reaction Past Psychological History: No Psychological Hx Reported Smoking Status: Never smoker Past Alcohol Use History: None Reported Past Drug Use History: None Reported General Exam Limitations: no limitations General appearance: alert, in no apparent distress Head exam: Present: atraumatic, normocephalic Eye exam: Present: normal appearance. Absent: scleral icterus, conjunctival injection Neck exam: Present: normal inspection Respiratory exam: Present: normal lung sounds bilaterally. Absent: respiratory distress, wheezes, rales, rhonchi, stridor Cardiovascular Exam: Present: regular rate, normal rhythm, normal heart sounds. Absent: systolic murmur, diastolic murmur, rubs, gallop GI/Abdominal exam: Present: soft. Absent: distended, tenderness, guarding, rebound, rigid, mass, pulsatile mass, hernia exam: Present: scrotal swelling, vertical testicular lie, other (The patient does have what appears to be inguinal hernia. There is no tenderness. The hernia is somewhat mobile, not incarcerated). Absent: testicular tenderness, urethral discharge Extremities exam: Present: normal inspection, normal capillary refill. Absent: pedal edema, calf tenderness Back exam: Present: normal inspection. Absent: CVA tenderness (R), CVA tenderness (L) Neurological exam: Present: alert Skin exam: Present: warm, dry, intact, normal color. Absent: rash Course Vital Signs 11/22/22 11/22/22 11/22/22 21:50 23:28 23:57 Temperature 99 F Pulse Rate 93 59 L 59 L Respiratory 18 16 16 Rate Blood Pressure 131/90 116/74 116/74 O2 Sat by Pulse 98 98 99 Oximetry Medical Decision Making - Medical Decision Making The patient had computed tomography scan of the abdomen which I interpreted to show presence of left inguinal hernia without obstruction. No free air. Was pt. sent in by a medical professional or institution (, PA, MACHINE PULLER, urgent care, hospital, or [place] [facility] facility...) When possible be specific @ -[No] Did you speak to anyone other than the patient for history (EMS, parent, family, police, friend...)? What history was obtained from this source @ -[No] Did you review nursing and triage notes (agree or disagree)? Why? @ -[I reviewed and agree with nursing and triage notes] Were old charts reviewed (outside hosp., previous admission, EMS record, old EKG, old radiological studies, urgent care reports/EKG's, [place] [facility] facility records)? Report findings @ -[No old charts were reviewed] Differential Diagnosis (chest pain, altered mental status, abdominal pain women, abdominal pain men, vaginal bleeding, weakness, fever, dyspnea, syncope, headache, dizziness, GI bleed, back pain, seizure, CVA, palpatations, mental health, musculoskeletal)? @ -[Differential Abdominal Pain Men: Appendicitis, cholecystitis, diverticulosis, ischemic bowel, pancreatitis, hepatitis, UTI, gastroenteritis, AAA, incarcerated hernia, bowel obstruction, constipation, inflammatory bowel, hepatitis, peptic ulcer disease, splenic infarction, perforated viscus, testicular torsion, this is not meant to be an all-inclusive list EKG interpreted by me (3pts min.). @ -[ X-rays interpreted by me (1pt min.). @ -[None done] CT interpreted by me (1pt min.). @ -[As above U/S interpreted by me (1pt. min.). @ -[None done] What testing was considered but not performed or refused? (CT, X-rays, U/S, labs)? Why? @ -[None] What meds were considered but not given or refused? Why? @ -[None] Did you discuss the management of the patient with other professionals (professionals i.e. , PA, MACHINE PULLER, lab, RT, psych nurse, case management social worker, animal hospital clerk, teacher, transit authority police officer, hospice case manager)? Give summary @ -[No] Was smoking cessation discussed for >3mins.? @ -[No] Was critical care preformed (if so, how long)? @ -[No] Were there social determinants of health that impacted care today? How? (Homelessness, low income, unemployed, alcoholism, drug addiction, transportation, low edu. Level, literacy, decrease access to med. care, half-way, rehab)? @ -[No] Was there de-escalation of care discussed even if they declined (Discuss DNR or withdrawal of care, Hospice)? DNR status @ -[No] What co-morbidities impacted this encounter? (DM, HTN, Smoking, COPD, CAD, Cancer, CVA, ARF, Chemo, Hep., AIDS, mental health diagnosis, sleep apnea, morbid obesity)? @ -[None] Was patient admitted / discharged? Hospital course, mention meds given and route, prescriptions, significant lab abnormalities, going to OR and other pertinent info. @ -[This patient is a 67-year-old man presenting with large left inguinal hernia. There is no incarceration or obstruction. We discussed following up with the surgeon regarding possible repair. We discussed signs and symptoms that would require immediate return to the emergency department as evidence of obstruction or strangulation, as well as the other return parameters. Undiagnosed new problem with uncertain prognosis? @ -[No] Drug Therapy requiring intensive monitoring for toxicity (Heparin, Nitro, Insulin, Cardizem)? @ -[No] Were any procedures done? @ -[No] Diagnosis/symptom? @ -[Left inguinal hernia, probably acute acute on chronic Acute, or Chronic, or Acute on Chronic? @ -[default] Uncomplicated (without systemic symptoms) or Complicated (systemic symptoms)? @ -[Uncomplicated Side effects of treatment? @ -[No] Exacerbation, Progression, or Severe Exacerbation? @ -[No] Poses a threat to life or bodily function? How? (Chest pain, [place], [place], pneumonia, PE, COPD, DKA, ARF, appy, cholecystitis, CVA, Diverticulitis, Homicidal, Suicidal, threat to staff... and all critical care pts) @ -[No] Disposition Clinical Impression: Inguinal hernia Disposition: HOME SELF-CARE Condition: Good Instructions (If sedation given, give patient instructions): Inguinal Hernia (ED) Is patient prescribed a controlled substance at d/c from ED?: No Referrals: Chino Lorenz MD [Primary Care Provider] - 1-2 days Quiana Rome DO [Doctor of Osteopathic Medicine] - 1-2 days
--- NOTE | 2022-11-22 23:26 | CT ---
EXAM: CT Abdomen and Pelvis Without Intravenous Contrast CLINICAL HISTORY: ITS.REASON CT Reason: suspect L inguinal hernia, groin pain TECHNIQUE: Axial computed tomography images of the abdomen and pelvis without intravenous contrast. CTDI is 14.8 mGy and DLP is 1062.2 mGy-cm. This CT exam was performed using one or more of the following dose reduction techniques: automated exposure control, adjustment of the mA and/or kV according to patient size, and/or use of iterative reconstruction technique. COMPARISON: No previous studies FINDINGS: Lung bases: Minimal scarring and subsegmental atelectasis noted. The lung bases. Heart: Heart is normal in size. ABDOMEN: Liver: Fatty liver. Gallbladder and bile ducts: The gallbladder is unremarkable. Pancreas: See below. Spleen: Spleen is normal in contour. Adrenals: The adrenal gland, the head, body, tail of the pancreas and the gallbladder are unremarkable. Kidneys and ureters: Nonspecific stranding about the perinephric spaces without hydronephrosis. Stomach and bowel: Moderate quantity of ingested material in the stomach. Moderate quantity of stool throughout the colon. A 21.4 x 10 x 8.4 cm left inguinal hernia is noted containing nondilated bowel loops and mesenteric fat. Diverticulosis without diverticulitis. PELVIS: Appendix: The appendix is seen on axial image 47 and is unremarkable. Bladder: Unremarkable. No stones. Reproductive: Unremarkable as visualized. ABDOMEN and PELVIS: Intraperitoneal space: Unremarkable. No free air. No significant fluid collection. Bones/joints: No acute fracture. No dislocation. No spondylolysis. Soft tissues: See above. Vasculature: Abdominal aorta is normal in caliber. Atherosclerotic disease of the abdominal aorta without change in caliber. No abdominal aortic aneurysm. Lymph nodes: Shotty central mesenteric lymph nodes are noted with haziness within the central mesentery compatible central mesenteric adenitis. No retroperitoneal lymphadenopathy. Other findings: Clinical correlation is advised. IMPRESSION: 1. Large left inguinal hernia containing nondilated bowel loops and mesenteric fat. Given the patient's history, surgical consultation is advised. 2. The gallbladder is unremarkable. 3. No renal calculus or hydronephrosis. 4. No bowel obstruction. 5. The appendix is unremarkable.
[2022-11-22 23:30] VITALS: BP 116/74; PULSE 59; RESP 16
== END 2022-11-22 23:58 | disposition home or self-care (01) ==
LOC: EC 21:50
DX: K40.90 Unilateral inguinal hernia, without obstruction or gangrene, not specified as recurrent (principal); E11.9 Type 2 diabetes mellitus without complications; I10 Essential (primary) hypertension
CPT/HCPCS: 74176; 99284

== ENCOUNTER → 2023-09-10 | Outpatient (CLI) | payer MEDICARE, OTHER ==
[2023-09-10 16:33] LABS: Basophils # (A) 0.02 X 10*3/uL (0.00-0.10); Basophils % (A) 0.3 %; Eosinophils # (A) 0.15 X 10*3/uL (0.04-0.35); Eosinophils % (A) 2.3 %; HCT 45.8 % (39.6-50.0); Lymphocytes # (A) 2.29 X 10*3/uL (0.90-5.00); Lymphocytes % (A) 34.9 %; MCH 30.5 pg (27.0-32.0); MCHC 32.8 g/dL (32.0-37.0); MCV 93.1 FL (80.0-97.0); Monocytes # (A) 0.68 X 10*3/uL (0.20-1.00); Monocytes % (A) 10.4 %; NRBC Per 100 WBC 0 X 10*3/uL (0.00-0.01); Neutrophils # (A) 3.42 X 10*3/uL (1.80-7.70); Neutrophils % (A) 51.9 %; Platelet Count 229 X 10*3/uL (140-440); RBC 4.92 X 10*6/uL (4.40-5.60); RDW 12.6 % (11.5-14.5); WBC 6.57 X 10*3/uL (4.50-10.00)
[2023-09-10 16:55] LABS: ALT 34 U/L (10-49); AST 32 U/L (14-35); Albumin 4.1 g/dL (3.8-4.9); Albumin/Globulin Ratio 1.46 Ratio (1.60-3.17); Alkaline Phosphatase 117 U/L (41-126); BUN/Creat Ratio 19.67 Ratio (12.00-20.00); Blood Urea Nitrogen 17.7 mg/dL (9.0-27.0); Calcium 9.7 mg/dL (8.7-10.3); Carbon Dioxide 24.3 mmol/L (21.6-31.8); Chloride 103 mmol/L (96-109); Chol/HDL Ratio 2.38 Ratio; Globulin 2.8 g/dL (1.6-3.3); Glucose 126 mg/dL (70-110); Potassium 4.3 mmol/L (3.5-5.5); Prostate Specific Antigen 0.87 ng/mL (0.000-4.500); Sodium 139 mmol/L (135-145); Total Bilirubin 0.5 mg/dL (0.3-1.2); Total Protein 6.9 g/dL (6.2-8.2); VLDL Calculation 12.48 mg/dL (5.00-40.00)
== END | disposition home or self-care (01) ==
LOC: LABWHC1 07:49
PROVIDERS: ATTEND Family Medicine
DX: Z12.5 Encounter for screening for malignant neoplasm of prostate (principal); I10 Essential (primary) hypertension; E78.5 Hyperlipidemia, unspecified
CPT/HCPCS: 36415; 80053; 80061; 84153; 84443; 85025